=== PATIENT | male | born 1975 | race Caucasian/White ===

== ENCOUNTER 2021-07-10 15:53 | Inpatient (IN) | payer OTHER ==
[2021-07-10] MEDS ORDERED: Sodium Chloride 0.9% 2.5 ML Syringe FLUSH PRN (16:06)
[2021-07-10] MEDS ORDERED: Sodium Chloride 0.9% 10 ML Syringe FLUSH PRN (16:06)
--- NOTE | 2021-07-10 16:09 | EDM.PDOC ---
ED HPI GENERAL MEDICAL PROBLEM - General Chief Complaint: Respiratory Problem Stated Complaint: SOB, DIZZY, PASSING OUT Time Seen by Provider: 07/10/21 16:00 - History of Present Illness INITIAL COMMENTS - FREE TEXT/NARRATIVE: History of present illness: [] The patient reports he is short of breath. He has been coughing since 02 July. He had a Covid test positive this week. He continues to be coughing but now is more short of breath. He fatigues easily. He coughs so hard that he passes out. He does not smoke. He does not have any significant risk for serious Covid disease. He is 46 years of age and he has only intermittent bronchospasm in the past and no permanent lung disease. Review of systems: As per history of present illness and below otherwise all systems reviewed and negative. Past medical history: As per history of present illness and as reviewed below otherwise noncontributory. Surgical history: As per history of present illness and as reviewed below otherwise noncontributory. Social history: No reported history of drug or alcohol abuse. Family history: As per history of present illness and as reviewed below otherwise noncontributory. Physical exam: Constitutional - well developed, well-nourished and in no acute distress HEENT - normocephalic, no evidence of trauma - external nose and mouth normal - no mass in neck and no JVD - mucosae moist EYES - full EOM, PERRL, no icterus - no evidence of inflammation, injection, or drainage Respiratory - no respiratory distress, equal bilateral expansion, lungs markedly diminished throughout. Cardiovascular - Regular Rhythm with S1 and S2 appreciated and no murmur, gallop or rub. GI - abdomen soft without distension or organomegaly - normal bowel sounds - no guard or rebound Musculoskeletal no gross deformity of long bones or joints - no tenderness, swelling or edema Neurologic - Alert and oriented times four - CN II-XII grossly intact - motor sensory and coordination symmetrically normal Psychiatric - appropriate mood and affect with normal thought content Hematologic - No petechiae or purpura - mucosa appropriate color and sclera not pale - normal nail bed color and refill Integument - no rash or evidence of trauma - normal turgor Diagnostics: [] Therapeutics: [] Impression: [] Plan: [] Definitive disposition and diagnosis as appropriate pending reevaluation and review of above. Headache Pain Score (Numeric/FACES): 7 - Related Data Allergies Allergy/AdvReac Type Severity Reaction Status Date / Time No Known Allergies Allergy Verified 07/10/21 16:39 Home Meds: Home Meds Codeine Phosphate/Guaifenesin [Guaifen-Codeine 100-10 mg/5 ml] 5 ml PO 07/10/21 [History] lisinopriL [Lisinopril] 20 mg PO 07/10/21 [History] predniSONE 10 mg PO .TAPER 07/10/21 [History] ED ROS GENERAL - Review of Systems Review Of Systems: Comprehensive ROS is negative, except as noted in HPI. ED EXAM, GENERAL - Physical Exam Exam: See Below Free Text/Narrative:: My physical exam is in the HPI #1 Interpretation EKG Interpretation Comments: EKG sinus tachycardia heart rate 112 WI 163 QRS 69 QRS has a late transition R wave ST and T are within normal limits no prior for comparison impression no acute injury Course - Vital Signs Last Recorded V/S: Last Vital Signs Temp 36.4 C 07/10/21 16:20 Pulse 105 H 07/10/21 17:45 Resp 16 07/10/21 17:45 BP 120/77 07/10/21 17:45 Pulse Ox 95 07/10/21 17:45 - Orders/Labs/Meds Orders: Active Orders 24 hr Category Date Time Status Communication Order [RC] STAT Care 07/10/21 16:05 Active Sodium Chloride 0.9% [Normal Saline] 1,000 ml Med 07/10/21 17:39 Active IV .Bolus Sodium Chloride 0.9% [Normal Saline] 1,000 ml Med 07/10/21 17:39 Active IV .Bolus Sodium Chloride 0.9% [Saline Flush] Med 07/10/21 16:06 Active 10 ml FLUSH ASDIRECTED PRN Sodium Chloride 0.9% [Saline Flush] Med 07/10/21 16:06 Active 2.5 ml FLUSH ASDIRECTED PRN Saline Lock Insert [OM.PC] Stat Oth 07/10/21 16:06 Ordered Medication Orders Sodium Chloride (Normal Saline) 1,000 mls @ 1,000 mls/hr IV .Bolus ONE Stop: 07/10/21 18:38 Last Admin: 07/10/21 17:42 Dose: 1,000 mls/hr Documented by: STRUALA Sodium Chloride (Normal Saline) 1,000 mls @ 1,000 mls/hr IV .Bolus ONE Stop: 07/10/21 18:38 Sodium Chloride (Sodium Chloride 0.9% 10 Ml Syringe) 10 ml FLUSH ASDIRECTED PRN PRN Reason: Keep Vein Open Last Admin: 07/10/21 16:57 Dose: 10 ml Documented by: KIA Sodium Chloride (Sodium Chloride 0.9% 2.5 Ml Syringe) 2.5 ml FLUSH ASDIRECTED PRN PRN Reason: Keep Vein Open Last Admin: 07/10/21 16:57 Dose: 2.5 ml Documented by: KIA Labs: Laboratory Tests 07/10/21 07/10/21 07/10/21 Range/Units 16:10 16:10 16:13 WBC 6.67 (4.0-11.0) K/uL RBC 6.05 H (4.50-5.90) M/uL Hgb 20.1 H (13.0-17.0) g/dL Hct 55.9 H (38.0-50.0) % MCV 92.4 (80.0-98.0) fL MCH 33.2 H (27.0-32.0) pg MCHC 36.0 (31.0-37.0) g/dL RDW Std Deviation 46.6 (28.0-62.0) fl RDW Coeff of Roldan 14 (11.0-15.0) % Plt Count 178 (150-400) K/uL MPV 10.90 (7.40-12.00) fL Neut % (Auto) 62.1 (48.0-80.0) % Lymph % (Auto) 27.6 (16.0-40.0) % [place] % (Auto) 10.2 (0.0-15.0) % Eos % (Auto) 0.0 (0.0-7.0) % Baso % (Auto) 0.1 (0.0-1.5) % Neut # (Auto) 4.1 (1.4-5.7) K/uL Lymph # (Auto) 1.8 (0.6-2.4) K/uL [place] # (Auto) 0.7 (0.0-0.8) K/uL Eos # (Auto) 0.0 (0.0-0.7) K/uL Baso # (Auto) 0.0 (0.0-0.1) K/uL Nucleated RBC % 0.0 /100WBC Nucleated RBCs # 0 K/uL Sodium 134 L (136-148) mmol/L Potassium 4.2 (3.5-5.1) mmol/L Chloride 98 (98-107) mmol/L Carbon Dioxide 24.0 (21.0-32.0) mmol/L BUN 24 H (7.0-18.0) mg/dL Creatinine 1.5 H (0.8-1.3) mg/dL Est Cr Clr Drug Dosing TNP Estimated GFR (MDRD) 50.4 ml/min Glucose 141 H (74-106) mg/dL Calcium 8.0 L (8.5-10.1) mg/dL Total Bilirubin 0.7 (0.2-1.0) mg/dL AST 45 H (15-37) IU/L ALT 51 (14-63) IU/L Alkaline Phosphatase 53 (46-116) U/L Troponin I < 0.050 (0.000-0.056) ng/mL Total Protein 7.7 (6.4-8.2) g/dL Albumin 3.2 L (3.4-5.0) g/dL Globulin 4.5 H (2.6-4.0) g/dL Albumin/Globulin Ratio 0.7 L (0.9-1.6) Influenza Type A RNA NEGATIVE (NEGATIVE) Influenza Type B RNA NEGATIVE (NEGATIVE) SARS-CoV-2 RNA (IVONE) POSITIVE H (NEGATIVE) Meds: Medications Generic Name Dose Route Start Last Admin Trade Name Freq PRN Reason Stop Dose Admin Sodium Chloride 1,000 mls @ 1,000 mls/hr 07/10/21 17:39 07/10/21 17:42 Normal Saline IV 07/10/21 18:38 1,000 mls/hr .Bolus ONE Administration Sodium Chloride 1,000 mls @ 1,000 mls/hr 07/10/21 17:39 Normal Saline IV 07/10/21 18:38 .Bolus ONE Sodium Chloride 10 ml 07/10/21 16:06 07/10/21 16:57 Sodium Chloride 0.9% 10 Ml Syringe FLUSH 10 ml ASDIRECTED PRN Administration Keep Vein Open Sodium Chloride 2.5 ml 07/10/21 16:06 07/10/21 16:57 Sodium Chloride 0.9% 2.5 Ml Syringe FLUSH 2.5 ml ASDIRECTED PRN Administration Keep Vein Open Discontinued Medications Generic Name Dose Route Start Last Admin Trade Name Angelica PRN Reason Stop Dose Admin Acetaminophen 1,000 mg 07/10/21 16:49 07/10/21 16:56 Acetaminophen 500 Mg Tab PO 07/10/21 16:50 1,000 mg ONETIME ONE Administration - Re-Assessments/Exams Free Text/Narrative Re-Assessment/Exam: 07/10/21 17:40 Medically it is over 55 and hemoglobin over 20. Patient says his hematocrit and hemoglobin have been high before and his doctor in [place] who prescribes his testosterone injections knows that. He took a testosterone injection last night. He says his hemoglobin surges before that and he is not drinking well because of not feeling well so he is dehydrated. Plan to give 2 L of fluids and recheck it. Free Text/Narrative Re-Assessment/Exam: 07/10/21 18:[address] Miguel A Maddox and he agreed to hydrate the patient and recheck the labs. Polycythemia can be treated by phlebotomy but this in this town is done as an outpatient in the clinic. Patient's hypoxia and Covid and polycythemia in combination are indications for admission because the hydration to help reduce the polycythemia would be significant enough that he might be a threat to his wellbeing in terms of his Covid status. Departure - Departure Time of Disposition: 18:18 Disposition: Refer to Observation Condition: Good Clinical Impression: Pneumonia due to COVID-19 virus, Hypoxia, Dyspnea, Polycythemia - Discharge Information Referrals: PCP,None [Primary Care Provider] - Forms: ED Department Discharge Sepsis Event Note (ED) - Focused Exam Vital Signs: Vital Signs Temp Pulse Resp BP Pulse Ox 07/10/21 17:45 105 H 16 120/77 95 07/10/21 16:57 111 H 17 132/86 95 07/10/21 16:20 36.4 C 101 H 16 140/87 95 07/10/21 16:00 116 H 20 134/82 89 L - My Orders Last 24 Hours: My Active Orders 07/10/21 16:05 Communication Order [RC] STAT 07/10/21 16:06 Sodium Chloride 0.9% [Saline Flush] 10 ml FLUSH ASDIRECTED PRN Sodium Chloride 0.9% [Saline Flush] 2.5 ml FLUSH ASDIRECTED PRN Saline Lock Insert [OM.PC] Stat 07/10/21 17:39 Sodium Chloride 0.9% [Normal Saline] 1,000 ml IV .Bolus Sodium Chloride 0.9% [Normal Saline] 1,000 ml IV .Bolus - Assessment/Plan Last 24 Hours: My Active Orders 07/10/21 16:05 Communication Order [RC] STAT 07/10/21 16:06 Sodium Chloride 0.9% [Saline Flush] 10 ml FLUSH ASDIRECTED PRN Sodium Chloride 0.9% [Saline Flush] 2.5 ml FLUSH ASDIRECTED PRN Saline Lock Insert [OM.PC] Stat 07/10/21 17:39 Sodium Chloride 0.9% [Normal Saline] 1,000 ml IV .Bolus Sodium Chloride 0.9% [Normal Saline] 1,000 ml IV .Bolus
[2021-07-10] MEDS ORDERED: Acetaminophen 500 MG Tab PO ONE (16:49)
[2021-07-10 16:54] LABS: BLOOD UREA NITROGEN,BUN 24 mg/dL (7.0-18.0); CHLORIDE,CL 98 mmol/L (98-107); GLUCOSE RANDOM 141 mg/dL (74-106); POTASSIUM,K 4.2 mmol/L (3.5-5.1); SODIUM,NA 134 mmol/L (136-148)
--- NOTE | 2021-07-10 17:23 | CR ---
INDICATION: dyspnea/covid positive TECHNIQUE: Chest 1 view. COMPARISON: None. FINDINGS: Cardiovascular and mediastinum: Heart size and vasculature are normal in caliber and appearance. Mediastinum is within normal limits. Lungs and pleural space: Lungs are clear. No sign of infiltrate or mass. No sign of pleural effusion. No pneumothorax. Bones and soft tissues: No significant findings. IMPRESSION: Unremarkable chest. Dictated by: Jovanny Gonzalez MD @ 07/10/2021 17:21:56 (Electronically Signed)
[2021-07-10 17:27] LABS: CORONAVIRUS COVID-19 NAA POSITIVE (NEGATIVE); INFLUENZA A NAA NEGATIVE (NEGATIVE); INFLUENZA B NAA NEGATIVE (NEGATIVE)
[2021-07-10] MEDS ORDERED: Sodium Chloride 0.9% 1,000 ML IV ONE ×2 (17:39)
--- NOTE | 2021-07-10 17:51 | CT ---
INDICATION: Hypoxia, cough, COVID positive TECHNIQUE: CT chest pulmonary PE protocol acquired with 100 cc Isovue 370 IV contrast. COMPARISON: None FINDINGS: Cardiovascular structures: Normal vascular enhancement of the pulmonary arteries, no sign of pulmonary embolism. Heart size is normal. No sign of aneurysm in the thoracic aorta. Mediastinum and nelly: No mass or adenopathy. Lungs: Patchy ground-glass opacities scattered throughout the lungs. Bilateral dependent atelectasis. Pleura and pericardium: No effusions. Chest wall and axilla: No mass or adenopathy. Upper abdomen: Unremarkable. Bones: No significant findings. IMPRESSION: No pulmonary embolism. Bilateral ground-glass opacities consistent with COVID-19 infection. Please note that all CT scans at this facility use dose modulation, iterative reconstruction, and/or weight-based dosing when appropriate to reduce radiation dose to as low as reasonably achievable. Dictated by Ashley Garza MD @ 07/10/2021 5:48:31 PM (Electronically Signed)
[2021-07-10] MEDS ORDERED: Iopamidol 755 MG/ML 500 ML Multipack Bottle IVPUSH ONE (18:31)
[2021-07-10] MEDS ORDERED: REMDESIVIR 200 MG in Sodium Chloride 0.9% 250 ML IV ONE (21:48)
[2021-07-10] MEDS ORDERED: Albuterol 8 GM Inhaler INH PRN (21:50)
[2021-07-10] MEDS ORDERED: Melatonin 3 MG Tab PO PRN (21:56)
--- NOTE | 2021-07-10 21:57 | PCM.HP.2 ---
H&P History of Present Illness - General Date of Service: 07/10/21 Admit Problem/Dx: Admission Diagnosis/Problem Admission Diagnosis/Problem Polycythemia - History of Present Illness Initial Comments - Free Text/Narative: 46 yo male admitted for one week of cold symptoms. Patient reports severe cough which causes him to be fatigued and short of breath. PAtient reports passing out twice. He denies any fever. CT chest reported no PE, bilateral infiltrates. He was satting 88% on room air, requring 2 L to keep sats above 90%. Patient reports a history of elevated Hgb due to his testosterone supplementation. He reports that the past week he has not been drinking enough fluids to keep his Hgb level down. Headache Pain Score (Numeric/FACES): 7 - Related Data Allergies/Adverse Reactions: Allergies Allergy/AdvReac Type Severity Reaction Status Date / Time No Known Allergies Allergy Verified 07/10/21 16:39 Home Medications: Home Meds Albuterol Sulfate [Albuterol Sulfate HFA] 8.5 gm INH Q8HR PRN 07/10/21 [History] Codeine Phosphate/Guaifenesin [Guaifen-Codeine 100-10 mg/5 ml] 10 ml PO Q4H PRN 07/10/21 [History] Testosterone Cypionate [Testone Cik] 0.5 ml IM Q96H 07/10/21 [History] lisinopriL [Lisinopril] 20 mg PO BID 07/10/21 [History] predniSONE 10 mg PO .TAPER 07/10/21 [History] Past Medical History - Past Health History Medical/Surgical History: Denies Medical/Surgical History Social & Family History - Family History Family Medical History: No Pertinent Family History - Tobacco Use Tobacco Use Status *Q: Never Tobacco User Second Hand Smoke Exposure: No - Caffeine Use Caffeine Use: Reports: Coffee, Tea, Other Other Caffeine Use: espresso - Alcohol Use Days Per Week of Alcohol Use: 3 Number of Drinks Per Day: 3 Total Drinks Per Week: 9 Date of Last Drink: 07/01/21 Time of Last Drink: 20:00 - Recreational Drug Use Recreational Drug Use: No H&P Review of Systems - Review of Systems: Review Of Systems: Comprehensive ROS is negative, except as noted in HPI. Exam - Exam Exam: See Below - Vital Signs Vital Signs: Last Vital Signs Temp 35.9 C L 07/10/21 20:00 Pulse 92 07/10/21 20:00 Resp 20 07/10/21 20:00 BP 121/80 07/10/21 20:00 Pulse Ox 92 L 07/10/21 20:00 Weight: 99.11 kg - Exam General: Alert, Oriented HEENT: Mucosa Moist & [place] Neck: Supple Lungs: Clear to Auscultation Cardiovascular: Regular Rate, Regular Rhythm GI/Abdominal Exam: Normal Bowel Sounds, Soft, Non-Tender Extremities: Non-Tender, No Pedal Edema Skin: Warm, Dry, Intact - Patient Data Lab Results Last 24 hrs: Laboratory Results - last 24 hr 07/10/21 07/10/21 07/10/21 Range/Units 16:10 16:10 16:13 WBC 6.67 (4.0-11.0) K/uL RBC 6.05 H (4.50-5.90) M/uL Hgb 20.1 H (13.0-17.0) g/dL Hct 55.9 H (38.0-50.0) % MCV 92.4 (80.0-98.0) fL MCH 33.2 H (27.0-32.0) pg MCHC 36.0 (31.0-37.0) g/dL RDW Std Deviation 46.6 (28.0-62.0) fl RDW Coeff of Roldan 14 (11.0-15.0) % Plt Count 178 (150-400) K/uL MPV 10.90 (7.40-12.00) fL Neut % (Auto) 62.1 (48.0-80.0) % Lymph % (Auto) 27.6 (16.0-40.0) % [place] % (Auto) 10.2 (0.0-15.0) % Eos % (Auto) 0.0 (0.0-7.0) % Baso % (Auto) 0.1 (0.0-1.5) % Neut # (Auto) 4.1 (1.4-5.7) K/uL Lymph # (Auto) 1.8 (0.6-2.4) K/uL [place] # (Auto) 0.7 (0.0-0.8) K/uL Eos # (Auto) 0.0 (0.0-0.7) K/uL Baso # (Auto) 0.0 (0.0-0.1) K/uL Nucleated RBC % 0.0 /100WBC Nucleated RBCs # 0 K/uL Sodium 134 L (136-148) mmol/L Potassium 4.2 (3.5-5.1) mmol/L Chloride 98 (98-107) mmol/L Carbon Dioxide 24.0 (21.0-32.0) mmol/L BUN 24 H (7.0-18.0) mg/dL Creatinine 1.5 H (0.8-1.3) mg/dL Est Cr Clr Drug Dosing TNP Estimated GFR (MDRD) 50.4 ml/min Glucose 141 H (74-106) mg/dL Calcium 8.0 L (8.5-10.1) mg/dL Total Bilirubin 0.7 (0.2-1.0) mg/dL AST 45 H (15-37) IU/L ALT 51 (14-63) IU/L Alkaline Phosphatase 53 (46-116) U/L Troponin I < 0.050 (0.000-0.056) ng/mL Total Protein 7.7 (6.4-8.2) g/dL Albumin 3.2 L (3.4-5.0) g/dL Globulin 4.5 H (2.6-4.0) g/dL Albumin/Globulin Ratio 0.7 L (0.9-1.6) Influenza Type A RNA NEGATIVE (NEGATIVE) Influenza Type B RNA NEGATIVE (NEGATIVE) SARS-CoV-2 RNA (IVONE) POSITIVE H (NEGATIVE) 07/10/21 Range/Units 21:19 WBC 5.37 (4.0-11.0) K/uL RBC 5.53 (4.50-5.90) M/uL Hgb 18.2 H (13.0-17.0) g/dL Hct 51.8 H (38.0-50.0) % MCV 93.7 (80.0-98.0) fL MCH 32.9 H (27.0-32.0) pg MCHC 35.1 (31.0-37.0) g/dL RDW Std Deviation 47.5 (28.0-62.0) fl RDW Coeff of Roldan 14 (11.0-15.0) % Plt Count 135 L (150-400) K/uL MPV 10.60 (7.40-12.00) fL Neut % (Auto) (48.0-80.0) % Lymph % (Auto) (16.0-40.0) % [place] % (Auto) (0.0-15.0) % Eos % (Auto) (0.0-7.0) % Baso % (Auto) (0.0-1.5) % Neut # (Auto) (1.4-5.7) K/uL Lymph # (Auto) (0.6-2.4) K/uL [place] # (Auto) (0.0-0.8) K/uL Eos # (Auto) (0.0-0.7) K/uL Baso # (Auto) (0.0-0.1) K/uL Nucleated RBC % 0.0 /100WBC Nucleated RBCs # 0 K/uL Sodium (136-148) mmol/L Potassium (3.5-5.1) mmol/L Chloride (98-107) mmol/L Carbon Dioxide (21.0-32.0) mmol/L BUN (7.0-18.0) mg/dL Creatinine (0.8-1.3) mg/dL Est Cr Clr Drug Dosing Estimated GFR (MDRD) ml/min Glucose (74-106) mg/dL Calcium (8.5-10.1) mg/dL Total Bilirubin (0.2-1.0) mg/dL AST (15-37) IU/L ALT (14-63) IU/L Alkaline Phosphatase (46-116) U/L Troponin I (0.000-0.056) ng/mL Total Protein (6.4-8.2) g/dL Albumin (3.4-5.0) g/dL Globulin (2.6-4.0) g/dL Albumin/Globulin Ratio (0.9-1.6) Influenza Type A RNA (NEGATIVE) Influenza Type B RNA (NEGATIVE) SARS-CoV-2 RNA (IVONE) (NEGATIVE) Result Diagrams: 07/10/21 21:19 07/10/21 16:10 Sepsis Event Note - Evaluation Sepsis Screening Result: Possible Sepsis Risk - Focused Exam Vital Signs: Vital Signs Temp Pulse Resp BP Pulse Ox 07/10/21 20:00 35.9 C L 92 20 121/80 92 L 07/10/21 19:42 91 16 118/79 97 07/10/21 18:45 92 16 112/76 96 07/10/21 17:45 105 H 16 120/77 95 07/10/21 16:57 111 H 17 132/86 95 07/10/21 16:20 36.4 C 101 H 16 140/87 95 07/10/21 16:00 116 H 20 134/82 89 L - Problem List (1) Erythrocytosis SNOMED Code(s): 456189177, 881940422 ICD Code: D75.1 - SECONDARY POLYCYTHEMIA Status: Acute Current Visit: Yes (2) Hypoxia SNOMED Code(s): 223881648 ICD Code: R09.02 - HYPOXEMIA Status: Acute Current Visit: Yes (3) Pneumonia due to COVID-19 virus SNOMED Code(s): 775558236575652443 ICD Code: U07.1 - COVID-19; J12.82 - PNEUMONIA DUE TO CORONAVIRUS DISEASE 2019 Status: Acute Current Visit: Yes Problem List Initiated/Reviewed/Updated: Yes Orders Last 24hrs: Active Orders 24 hr Category Date Time Status Admission Status [Patient Status] [ADT] Stat ADT 07/10/21 18:20 Active Cardiac Monitoring [RC] . DIRECTED Care 07/10/21 21:51 Ordered Communication Order [RC] STAT Care 07/10/21 16:05 Active COMPREHENSIVE METABOLIC PN,CMP [CHEM] AM Lab 07/11/21 05:11 Ordered COMPREHENSIVE METABOLIC PN,CMP [CHEM] AM Lab 07/12/21 05:11 Ordered COMPREHENSIVE METABOLIC PN,CMP [CHEM] AM Lab 07/13/21 05:11 Ordered Albuterol Sulfate Med 07/10/21 21:50 Ordered 8.5 gm INH Q4HR PRN Enoxaparin [Lovenox] Med 07/10/21 22:00 Ordered 40 mg SUBCUT Q24H Remdesivir 100 mg Med 07/11/21 22:00 Ordered Sodium Chloride 0.9% [Normal Saline AdvBag] 100 ml IV Q24H Remdesivir 200 mg Med 07/10/21 21:48 Ordered Sodium Chloride 0.9% [Normal Saline] 250 ml IV ONETIME Sodium Chloride 0.9% [Saline Flush] Med 07/10/21 16:06 Active 10 ml FLUSH ASDIRECTED PRN Sodium Chloride 0.9% [Saline Flush] Med 07/10/21 16:06 Active 2.5 ml FLUSH ASDIRECTED PRN dexAMETHasone Med 07/10/21 22:00 Ordered 6 mg PO Q24H lisinopriL Med 07/11/21 09:00 Ordered 20 mg PO BID Saline Lock Insert [OM.PC] Stat Oth 07/10/21 16:06 Ordered Medication Orders Dexamethasone (Dexamethasone 4 Mg Tab) 6 mg PO Q24H KELVIN Enoxaparin Sodium (Enoxaparin 40 Mg/0.4 Ml Syringe) 40 mg SUBCUT Q24H KELVIN Remdesivir 100 mg/ Sodium (Chloride) 100 mls @ 100 mls/hr IV Q24H KELVIN Stop: 07/14/21 22:59 Remdesivir 200 mg/ Sodium (Chloride) 250 mls @ 250 mls/hr IV ONETIME ONE Stop: 07/10/21 21:49 Non-Formulary Medication (Lisinopril) 20 mg PO BID KELVIN Non-Formulary Medication (Albuterol Sulfate) 8.5 gm INH Q4HR PRN PRN Reason: Cough Sodium Chloride (Sodium Chloride 0.9% 10 Ml Syringe) 10 ml FLUSH ASDIRECTED PRN PRN Reason: Keep Vein Open Last Admin: 07/10/21 16:57 Dose: 10 ml Documented by: KIA Sodium Chloride (Sodium Chloride 0.9% 2.5 Ml Syringe) 2.5 ml FLUSH ASDIRECTED P RN PRN Reason: Keep Vein Open Last Admin: 07/10/21 16:57 Dose: 2.5 ml Documented by: KIA Assessment/Plan Comment:: 46 yo male admitted for covid pneumoni with hypxia Hypoxia: on 2 L NC COVID pneumonia: remdesivir and dexamethasone Erythrocytosis: likley related to testosterone use
[2021-07-10] MEDS: Enoxaparin 40 MG/0.4 ML Syringe SUBCUT SCH (23:08)
[2021-07-10] MEDS: Dexamethasone 4 MG Tab PO SCH (23:09)
[2021-07-10] MEDS: Codeine/guaiFENesin 10-100 MG/5 ML Syrup 5 ML Cup PO PRN (23:10)
[2021-07-11] MEDS: Benzonatate 100 MG Cap PO PRN ×3 (00:54→20:57)
[2021-07-11] MEDS: Codeine/guaiFENesin 10-100 MG/5 ML Syrup 5 ML Cup PO PRN ×3 (06:08→22:17)
[2021-07-11 07:02] LABS: BLOOD UREA NITROGEN,BUN 19 mg/dL (7.0-18.0); CARBON DIOXIDE,CO2 24.8 mmol/L (21.0-32.0); CHLORIDE,CL 99 mmol/L (98-107); GLUCOSE RANDOM 127 mg/dL (74-106); POTASSIUM,K 4.9 mmol/L (3.5-5.1); SODIUM,NA 132 mmol/L (136-148)
[2021-07-11] MEDS: Lisinopril 10 MG Tab PO SCH ×2 (09:31→20:57)
--- NOTE | 2021-07-11 16:51 | PCM.PN ---
- General Info Date of Service: 07/11/21 - Review of Systems Systems Review Comment:: patient reports shortness of breath with exertion due to cough, is worried about going home to soon. - Patient Data Vitals - Most Recent: Last Vital Signs Temp 37.3 C 07/11/21 14:00 Pulse 98 07/11/21 14:00 Resp 18 07/11/21 14:00 BP 121/81 07/11/21 14:00 Pulse Ox 94 L 07/11/21 14:00 Weight - Most Recent: 99.11 kg I&O - Last 24 Hours: Intake & Output 07/11/21 07/11/21 07/11/21 06:59 14:59 22:59 Intake Total 900 Output Total 900 Balance 0 Lab Results Last 24 Hours: Laboratory Results - last 24 hr 07/10/21 07/10/21 07/10/21 Range/Units 16:10 16:13 21:19 WBC 5.37 (4.0-11.0) K/uL RBC 5.53 (4.50-5.90) M/uL Hgb 18.2 H (13.0-17.0) g/dL Hct 51.8 H (38.0-50.0) % MCV 93.7 (80.0-98.0) fL MCH 32.9 H (27.0-32.0) pg MCHC 35.1 (31.0-37.0) g/dL RDW Std Deviation 47.5 (28.0-62.0) fl RDW Coeff of Roldan 14 (11.0-15.0) % Plt Count 135 L (150-400) K/uL MPV 10.60 (7.40-12.00) fL Neut % (Auto) (48.0-80.0) % Lymph % (Auto) (16.0-40.0) % Stafford % (Auto) (0.0-15.0) % Eos % (Auto) (0.0-7.0) % Baso % (Auto) (0.0-1.5) % Neut # (Auto) (1.4-5.7) K/uL Lymph # (Auto) (0.6-2.4) K/uL Stafford # (Auto) (0.0-0.8) K/uL Eos # (Auto) (0.0-0.7) K/uL Baso # (Auto) (0.0-0.1) K/uL Nucleated RBC % 0.0 /100WBC Nucleated RBCs # 0 K/uL Sodium 134 L (136-148) mmol/L Potassium 4.2 (3.5-5.1) mmol/L Chloride 98 (98-107) mmol/L Carbon Dioxide 24.0 (21.0-32.0) mmol/L BUN 24 H (7.0-18.0) mg/dL Creatinine 1.5 H (0.8-1.3) mg/dL Est Cr Clr Drug Dosing TNP Estimated GFR (MDRD) 50.4 ml/min Glucose 141 H (74-106) mg/dL Calcium 8.0 L (8.5-10.1) mg/dL Total Bilirubin 0.7 (0.2-1.0) mg/dL AST 45 H (15-37) IU/L ALT 51 (14-63) IU/L Alkaline Phosphatase 53 (46-116) U/L Troponin I < 0.050 (0.000-0.056) ng/mL Total Protein 7.7 (6.4-8.2) g/dL Albumin 3.2 L (3.4-5.0) g/dL Globulin 4.5 H (2.6-4.0) g/dL Albumin/Globulin Ratio 0.7 L (0.9-1.6) Influenza Type A RNA NEGATIVE (NEGATIVE) Influenza Type B RNA NEGATIVE (NEGATIVE) SARS-CoV-2 RNA (IVONE) POSITIVE H (NEGATIVE) 07/11/21 07/11/21 Range/Units 05:40 05:40 WBC 4.80 (4.0-11.0) K/uL RBC 5.44 (4.50-5.90) M/uL Hgb 17.2 H (13.0-17.0) g/dL Hct 50.4 H (38.0-50.0) % MCV 92.6 (80.0-98.0) fL MCH 31.6 (27.0-32.0) pg MCHC 34.1 (31.0-37.0) g/dL RDW Std Deviation 44.2 (28.0-62.0) fl RDW Coeff of Roldan 13 (11.0-15.0) % Plt Count 148 L (150-400) K/uL MPV 11.70 (7.40-12.00) fL Neut % (Auto) 70.2 (48.0-80.0) % Lymph % (Auto) 18.1 (16.0-40.0) % Stafford % (Auto) 11.5 (0.0-15.0) % Eos % (Auto) 0.0 (0.0-7.0) % Baso % (Auto) 0.2 (0.0-1.5) % Neut # (Auto) 3.4 (1.4-5.7) K/uL Lymph # (Auto) 0.9 (0.6-2.4) K/uL Stafford # (Auto) 0.6 (0.0-0.8) K/uL Eos # (Auto) 0.0 (0.0-0.7) K/uL Baso # (Auto) 0.0 (0.0-0.1) K/uL Nucleated RBC % /100WBC Nucleated RBCs # K/uL Sodium 132 L (136-148) mmol/L Potassium 4.9 (3.5-5.1) mmol/L Chloride 99 (98-107) mmol/L Carbon Dioxide 24.8 (21.0-32.0) mmol/L BUN 19 H (7.0-18.0) mg/dL Creatinine 1.1 (0.8-1.3) mg/dL Est Cr Clr Drug Dosing 89.37 Estimated GFR (MDRD) > 60.0 ml/min Glucose 127 H (74-106) mg/dL Calcium 7.5 L (8.5-10.1) mg/dL Total Bilirubin 0.5 (0.2-1.0) mg/dL AST 43 H (15-37) IU/L ALT 41 (14-63) IU/L Alkaline Phosphatase 43 L (46-116) U/L Troponin I (0.000-0.056) ng/mL Total Protein 6.5 (6.4-8.2) g/dL Albumin 2.7 L (3.4-5.0) g/dL Globulin 3.8 (2.6-4.0) g/dL Albumin/Globulin Ratio 0.7 L (0.9-1.6) Influenza Type A RNA (NEGATIVE) Influenza Type B RNA (NEGATIVE) SARS-CoV-2 RNA (IVONE) (NEGATIVE) Med Orders - Current: Current Medications Albuterol (Albuterol 8 Gm Inhaler) 0 gm INH Q4HR PRN PRN Reason: Cough Benzonatate (Benzonatate 100 Mg Cap) 100 mg PO Q6H PRN PRN Reason: Cough Last Admin: 07/11/21 12:00 Dose: 100 mg Documented by: Dexamethasone (Dexamethasone 4 Mg Tab) 6 mg PO Q24H [facility] Last Admin: 07/10/21 23:09 Dose: 6 mg Documented by: Enoxaparin Sodium (Enoxaparin 40 Mg/0.4 Ml Syringe) 40 mg SUBCUT Q24H [facility] Last Admin: 07/10/21 23:08 Dose: 40 mg Documented by: Guaifenesin/Codeine Phosphate (Codeine/Guaifenesin 10-100 Mg/5 Ml Syrup 5 Ml Cup) 5 ml PO Q6H PRN PRN Reason: Cough Last Admin: 07/11/21 12:00 Dose: 5 ml Documented by: Remdesivir 100 mg/ Sodium (Chloride) 100 mls @ 100 mls/hr IV Q24H [facility] Stop: 07/14/21 22:59 Lisinopril (Lisinopril 10 Mg Tab) 20 mg PO BID [facility] Last Admin: 07/11/21 09:31 Dose: 20 mg Documented by: Melatonin (Melatonin 3 Mg Tab) 6 mg PO BEDTIME PRN PRN Reason: Insomnia Last Admin: 07/11/21 01:00 Dose: 6 mg Documented by: Sodium Chloride (Sodium Chloride 0.9% 10 Ml Syringe) 10 ml FLUSH ASDIRECTED PRN PRN Reason: Keep Vein Open Last Admin: 07/10/21 16:57 Dose: 10 ml Documented by: Sodium Chloride (Sodium Chloride 0.9% 2.5 Ml Syringe) 2.5 ml FLUSH ASDIRECTED PRN PRN Reason: Keep Vein Open Last Admin: 07/10/21 16:57 Dose: 2.5 ml Documented by: Discontinued Medications Acetaminophen (Acetaminophen 500 Mg Tab) 1,000 mg PO ONETIME ONE Stop: 07/10/21 16:50 Last Admin: 07/10/21 16:56 Dose: 1,000 mg Documented by: Sodium Chloride (Normal Saline) 1,000 mls @ 1,000 mls/hr IV .Bolus ONE Stop: 07/10/21 18:38 Last Admin: 07/10/21 17:42 Dose: 1,000 mls/hr Documented by: Sodium Chloride (Normal Saline) 1,000 mls @ 1,000 mls/hr IV .Bolus ONE Stop: 07/10/21 18:38 Last Admin: 07/10/21 19:02 Dose: 1,000 mls/hr Documented by: Remdesivir 200 mg/ Sodium (Chloride) 250 mls @ 250 mls/hr IV ONETIME ONE Stop: 07/10/21 21:49 Last Admin: 07/10/21 23:06 Dose: 250 mls/hr Documented by: Iopamidol (Iopamidol 755 Mg/Ml 500 Ml Multipack Bottle) 100 ml IVPUSH ONETIME ONE Stop: 07/10/21 18:32 Last Admin: 07/10/21 18:33 Dose: 100 ml Documented by: - Exam General: Alert, Oriented Neck: Supple Lungs: Normal Respiratory Effort, Rhonchi Cardiovascular: Regular Rate, Regular Rhythm GI/Abdominal Exam: Soft, Non-Tender, No Distention Back Exam: Other Extremities: No Pedal Edema Skin: Warm Neurological: No New Focal Deficit - Patient Data Lab Results Last 24 hrs: Laboratory Results - last 24 hr 07/10/21 07/10/21 07/10/21 Range/Units 16:10 16:13 21:19 WBC 5.37 (4.0-11.0) K/uL RBC 5.53 (4.50-5.90) M/uL Hgb 18.2 H (13.0-17.0) g/dL Hct 51.8 H (38.0-50.0) % MCV 93.7 (80.0-98.0) fL MCH 32.9 H (27.0-32.0) pg MCHC 35.1 (31.0-37.0) g/dL RDW Std Deviation 47.5 (28.0-62.0) fl RDW Coeff of Roldan 14 (11.0-15.0) % Plt Count 135 L (150-400) K/uL MPV 10.60 (7.40-12.00) fL Neut % (Auto) (48.0-80.0) % Lymph % (Auto) (16.0-40.0) % Stafford % (Auto) (0.0-15.0) % Eos % (Auto) (0.0-7.0) % Baso % (Auto) (0.0-1.5) % Neut # (Auto) (1.4-5.7) K/uL Lymph # (Auto) (0.6-2.4) K/uL Stafford # (Auto) (0.0-0.8) K/uL Eos # (Auto) (0.0-0.7) K/uL Baso # (Auto) (0.0-0.1) K/uL Nucleated RBC % 0.0 /100WBC Nucleated RBCs # 0 K/uL Sodium 134 L (136-148) mmol/L Potassium 4.2 (3.5-5.1) mmol/L Chloride 98 (98-107) mmol/L Carbon Dioxide 24.0 (21.0-32.0) mmol/L BUN 24 H (7.0-18.0) mg/dL Creatinine 1.5 H (0.8-1.3) mg/dL Est Cr Clr Drug Dosing TNP Estimated GFR (MDRD) 50.4 ml/min Glucose 141 H (74-106) mg/dL Calcium 8.0 L (8.5-10.1) mg/dL Total Bilirubin 0.7 (0.2-1.0) mg/dL AST 45 H (15-37) IU/L ALT 51 (14-63) IU/L Alkaline Phosphatase 53 (46-116) U/L Troponin I < 0.050 (0.000-0.056) ng/mL Total Protein 7.7 (6.4-8.2) g/dL Albumin 3.2 L (3.4-5.0) g/dL Globulin 4.5 H (2.6-4.0) g/dL Albumin/Globulin Ratio 0.7 L (0.9-1.6) Influenza Type A RNA NEGATIVE (NEGATIVE) Influenza Type B RNA NEGATIVE (NEGATIVE) SARS-CoV-2 RNA (IVONE) POSITIVE H (NEGATIVE) 07/11/21 07/11/21 Range/Units 05:40 05:40 WBC 4.80 (4.0-11.0) K/uL RBC 5.44 (4.50-5.90) M/uL Hgb 17.2 H (13.0-17.0) g/dL Hct 50.4 H (38.0-50.0) % MCV 92.6 (80.0-98.0) fL MCH 31.6 (27.0-32.0) pg MCHC 34.1 (31.0-37.0) g/dL RDW Std Deviation 44.2 (28.0-62.0) fl RDW Coeff of Roldan 13 (11.0-15.0) % Plt Count 148 L (150-400) K/uL MPV 11.70 (7.40-12.00) fL Neut % (Auto) 70.2 (48.0-80.0) % Lymph % (Auto) 18.1 (16.0-40.0) % Stafford % (Auto) 11.5 (0.0-15.0) % Eos % (Auto) 0.0 (0.0-7.0) % Baso % (Auto) 0.2 (0.0-1.5) % Neut # (Auto) 3.4 (1.4-5.7) K/uL Lymph # (Auto) 0.9 (0.6-2.4) K/uL Stafford # (Auto) 0.6 (0.0-0.8) K/uL Eos # (Auto) 0.0 (0.0-0.7) K/uL Baso # (Auto) 0.0 (0.0-0.1) K/uL Nucleated RBC % /100WBC Nucleated RBCs # K/uL Sodium 132 L (136-148) mmol/L Potassium 4.9 (3.5-5.1) mmol/L Chloride 99 (98-107) mmol/L Carbon Dioxide 24.8 (21.0-32.0) mmol/L BUN 19 H (7.0-18.0) mg/dL Creatinine 1.1 (0.8-1.3) mg/dL Est Cr Clr Drug Dosing 89.37 Estimated GFR (MDRD) > 60.0 ml/min Glucose 127 H (74-106) mg/dL Calcium 7.5 L (8.5-10.1) mg/dL Total Bilirubin 0.5 (0.2-1.0) mg/dL AST 43 H (15-37) IU/L ALT 41 (14-63) IU/L Alkaline Phosphatase 43 L (46-116) U/L Troponin I (0.000-0.056) ng/mL Total Protein 6.5 (6.4-8.2) g/dL Albumin 2.7 L (3.4-5.0) g/dL Globulin 3.8 (2.6-4.0) g/dL Albumin/Globulin Ratio 0.7 L (0.9-1.6) Influenza Type A RNA (NEGATIVE) Influenza Type B RNA (NEGATIVE) SARS-CoV-2 RNA (IVONE) (NEGATIVE) Result Diagrams: 07/11/21 05:40 07/11/21 05:40 Sepsis Event Note - Evaluation Sepsis Screening Result: No Definite Risk - Focused Exam Vital Signs: Vital Signs Temp Pulse Resp BP BP Pulse Ox 07/11/21 14:00 37.3 C 98 18 121/81 94 L 07/11/21 10:00 36.4 C 85 16 126/83 93 L 07/11/21 09:31 118/82 07/11/21 06:09 93 20 92 L - Problem List & Annotations (1) Erythrocytosis SNOMED Code(s): 845792640, 713116448 Code(s): D75.1 - SECONDARY POLYCYTHEMIA Status: Acute Current Visit: Yes (2) Hypoxia SNOMED Code(s): 248643640 Code(s): R09.02 - HYPOXEMIA Status: Acute Current Visit: Yes (3) Pneumonia due to COVID-19 virus SNOMED Code(s): 379136687683681135 Code(s): U07.1 - COVID-19; J12.82 - PNEUMONIA DUE TO CORONAVIRUS DISEASE 2019 Status: Acute Current Visit: Yes - Problem List Review Problem List Initiated/Reviewed/Updated: Yes - My Orders Last 24 Hours: My Active Orders 07/10/21 21:50 Albuterol [Ventolin HFA] 0 gm INH Q4HR PRN 07/10/21 21:51 Cardiac Monitoring [RC] Q8H 07/10/21 21:52 Oxygen Therapy [RC] PRN Up ad Christina [RC] ASDIRECTED VTE/DVT Education [RC] PER UNIT ROUTINE Vital Signs [RC] Q4H Sequential Compression Device [OM.PC] Per Unit Routine Resuscitation Status Routine 07/10/21 21:53 Antiembolic Devices [RC] PER UNIT ROUTINE 07/10/21 21:56 Benzonatate [Tessalon Perles] 100 mg PO Q6H PRN Codeine/guaiFENesin [Robitussin AC] 5 ml PO Q6H PRN Melatonin 6 mg PO BEDTIME PRN 07/10/21 22:00 Enoxaparin [Lovenox] 40 mg SUBCUT Q24H dexAMETHasone 6 mg PO Q24H 07/11/21 09:00 lisinopriL [Prinivil] 20 mg PO BID 07/11/21 16:48 Admission Status [Patient Status] [ADT] Routine Cardiac Monitoring [RC] . DIRECTED 07/11/21 22:00 Remdesivir 100 mg Sodium Chloride 0.9% [Normal Saline AdvBag] 100 ml IV Q24H 07/12/21 05:11 CBC WITH AUTO DIFF [HEME] AM COMPREHENSIVE METABOLIC PN,CMP [CHEM] AM 07/13/21 05:11 CBC WITH AUTO DIFF [HEME] AM COMPREHENSIVE METABOLIC PN,CMP [CHEM] AM - Plan Plan:: 46 yo male admitted for covid pneumonia with hypoxia Hypoxia: on 2 L NC COVID pneumonia: remdesivir and dexamethasone 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
[2021-07-11] MEDS: Acetaminophen 325 MG Tab PO PRN (22:17)
[2021-07-11] MEDS: Enoxaparin 40 MG/0.4 ML Syringe SUBCUT SCH (22:17)
[2021-07-11] MEDS: Dexamethasone 4 MG Tab PO SCH (22:18)
[2021-07-11] MEDS: REMDESIVIR 100 MG in Sodium Chloride 0.9% 100 ML IV SCH (22:23)
[2021-07-12 07:57] LABS: BLOOD UREA NITROGEN,BUN 23 mg/dL (7.0-18.0); CARBON DIOXIDE,CO2 24.8 mmol/L (21.0-32.0); CHLORIDE,CL 98 mmol/L (98-107); GLUCOSE RANDOM 140 mg/dL (74-106); POTASSIUM,K 4.6 mmol/L (3.5-5.1); SODIUM,NA 133 mmol/L (136-148)
[2021-07-12] MEDS: Lisinopril 10 MG Tab PO SCH ×2 (08:36→20:58)
[2021-07-12] MEDS: Codeine/guaiFENesin 10-100 MG/5 ML Syrup 5 ML Cup PO PRN (11:19)
[2021-07-12] MEDS: Acetaminophen 325 MG Tab PO PRN (11:49)
[2021-07-12] MEDS: guaiFENesin/Dextromethorphan 100-10 MG/5 ML Soln 10 ML Cup PO PRN ×2 (14:22→18:26)
[2021-07-12] MEDS: Dexamethasone 4 MG Tab PO SCH (21:01)
[2021-07-12] MEDS: Enoxaparin 40 MG/0.4 ML Syringe SUBCUT SCH (21:01)
[2021-07-12] MEDS: REMDESIVIR 100 MG in Sodium Chloride 0.9% 100 ML IV SCH (21:01)
[2021-07-13] MEDS: guaiFENesin/Dextromethorphan 100-10 MG/5 ML Soln 10 ML Cup PO PRN ×2 (00:33→10:00)
[2021-07-13] MEDS: Benzonatate 100 MG Cap PO PRN ×2 (02:13→12:04)
[2021-07-13 06:38] LABS: BLOOD UREA NITROGEN,BUN 26 mg/dL (7.0-18.0); CARBON DIOXIDE,CO2 25.3 mmol/L (21.0-32.0); CHLORIDE,CL 99 mmol/L (98-107); GLUCOSE RANDOM 128 mg/dL (74-106); POTASSIUM,K 4.6 mmol/L (3.5-5.1); SODIUM,NA 134 mmol/L (136-148)
--- NOTE | 2021-07-13 07:33 | PCM.PN ---
- General Info Date of Service: 07/13/21 Admission Dx/Problem (Free Text): Admission Diagnosis/Problem Admission Diagnosis/Problem Polycythemia Subjective Update: 46-year-old male admitted for Covid pneumonia. Patient tested positive for Covid 1 week ago. He presented to the ER complaining of coughing and increased shortness of breath and fatigue. As per patient, he had been coughing so hard at home that he passed out. Patient does not smoke. Patient has history of intermittent bronchospasm. Patient had a hemoglobin of 20.1 due to testosterone injections. BUN was 24 and creatinine was 1.5. Troponin negative. SARS-CoV-2 positive. - Patient Data Vitals - Most Recent: Last Vital Signs Temp 97.6 F 07/13/21 04:06 Pulse 91 07/13/21 04:06 Resp 20 07/13/21 04:06 BP 104/70 07/13/21 04:06 Pulse Ox 92 L 07/13/21 04:06 Weight - Most Recent: 218 lb 8 oz I&O - Last 24 Hours: Intake & Output 07/12/21 07/13/21 07/13/21 22:59 06:59 14:59 Intake Total 300 1020 Output Total 900 Balance -600 1020 Lab Results Last 24 Hours: Laboratory Results - last 24 hr 07/12/21 07/13/21 07/13/21 Range/Units 06:44 05:44 05:44 WBC 7.26 (4.0-11.0) K/uL RBC 5.82 (4.50-5.90) M/uL Hgb 19.0 H (13.0-17.0) g/dL Hct 53.7 H (38.0-50.0) % MCV 92.3 (80.0-98.0) fL MCH 32.6 H (27.0-32.0) pg MCHC 35.4 (31.0-37.0) g/dL RDW Std Deviation 46.2 (28.0-62.0) fl RDW Coeff of Roldan 14 (11.0-15.0) % Plt Count 192 (150-400) K/uL MPV 10.90 (7.40-12.00) fL Neut % (Auto) 78.4 (48.0-80.0) % Lymph % (Auto) 12.3 L (16.0-40.0) % Price % (Auto) 9.2 (0.0-15.0) % Eos % (Auto) 0.0 (0.0-7.0) % Baso % (Auto) 0.1 (0.0-1.5) % Neut # (Auto) 5.7 (1.4-5.7) K/uL Lymph # (Auto) 0.9 (0.6-2.4) K/uL Price # (Auto) 0.7 (0.0-0.8) K/uL Eos # (Auto) 0.0 (0.0-0.7) K/uL Baso # (Auto) 0.0 (0.0-0.1) K/uL Nucleated RBC % 0.0 /100WBC Nucleated RBCs # 0 K/uL Sodium 133 L 134 L (136-148) mmol/L Potassium 4.6 4.6 (3.5-5.1) mmol/L Chloride 98 99 (98-107) mmol/L Carbon Dioxide 24.8 25.3 (21.0-32.0) mmol/L BUN 23 H 26 H (7.0-18.0) mg/dL Creatinine 1.1 1.1 (0.8-1.3) mg/dL Est Cr Clr Drug Dosing 89.37 89.37 mL/min Estimated GFR (MDRD) > 60.0 > 60.0 ml/min Glucose 140 H 128 H (74-106) mg/dL Calcium 7.9 L 8.1 L (8.5-10.1) mg/dL Total Bilirubin 0.6 0.6 (0.2-1.0) mg/dL AST 44 H 43 H (15-37) IU/L ALT 44 47 (14-63) IU/L Alkaline Phosphatase 48 52 (46-116) U/L Total Protein 7.0 7.1 (6.4-8.2) g/dL Albumin 2.8 L 2.8 L (3.4-5.0) g/dL Globulin 4.2 H 4.3 H (2.6-4.0) g/dL Albumin/Globulin Ratio 0.7 L 0.7 L (0.9-1.6) Med Orders - Current: Current Medications Acetaminophen (Acetaminophen 325 Mg Tab) 650 mg PO Q4H PRN PRN Reason: Pain Last Admin: 07/12/21 11:49 Dose: 650 mg Documented by: Albuterol (Albuterol 8 Gm Inhaler) 0 gm INH Q4HR PRN PRN Reason: Cough Benzonatate (Benzonatate 100 Mg Cap) 100 mg PO Q6H PRN PRN Reason: Cough Last Admin: 07/13/21 02:13 Dose: 100 mg Documented by: Dexamethasone (Dexamethasone 4 Mg Tab) 6 mg PO Q24H [facility] Last Admin: 07/12/21 21:01 Dose: 6 mg Documented by: Enoxaparin Sodium (Enoxaparin 40 Mg/0.4 Ml Syringe) 40 mg SUBCUT Q24H [facility] Last Admin: 07/12/21 21:01 Dose: 40 mg Documented by: Guaifenesin/Codeine Phosphate (Codeine/Guaifenesin 10-100 Mg/5 Ml Syrup 5 Ml Cup) 5 ml PO Q6H PRN PRN Reason: Cough Last Admin: 07/12/21 11:19 Dose: 5 ml Documented by: Guaifenesin/Dextromethorphan (Guaifenesin/Dextromethorphan 100-10 Mg/5 Ml Soln 10 Ml Cup) 10 ml PO Q4H PRN PRN Reason: Cough Last Admin: 07/13/21 00:33 Dose: 10 ml Documented by: Remdesivir 100 mg/ Sodium (Chloride) 100 mls @ 100 mls/hr IV Q24H [facility] Stop: 07/14/21 22:59 Last Admin: 07/12/21 21:01 Dose: 100 mls/hr Documented by: Lisinopril (Lisinopril 10 Mg Tab) 20 mg PO BID [facility] Last Admin: 07/12/21 20:58 Dose: 20 mg Documented by: Melatonin (Melatonin 3 Mg Tab) 6 mg PO BEDTIME PRN PRN Reason: Insomnia Last Admin: 07/11/21 01:00 Dose: 6 mg Documented by: Sodium Chloride (Sodium Chloride 0.9% 10 Ml Syringe) 10 ml FLUSH ASDIRECTED PRN PRN Reason: Keep Vein Open Last Admin: 07/10/21 16:57 Dose: 10 ml Documented by: Sodium Chloride (Sodium Chloride 0.9% 2.5 Ml Syringe) 2.5 ml FLUSH ASDIRECTED PRN PRN Reason: Keep Vein Open Last Admin: 07/10/21 16:57 Dose: 2.5 ml Documented by: Discontinued Medications Acetaminophen (Acetaminophen 500 Mg Tab) 1,000 mg PO ONETIME ONE Stop: 07/10/21 16:50 Last Admin: 07/10/21 16:56 Dose: 1,000 mg Documented by: Sodium Chloride (Normal Saline) 1,000 mls @ 1,000 mls/hr IV .Bolus ONE Stop: 07/10/21 18:38 Last Admin: 07/10/21 17:42 Dose: 1,000 mls/hr Documented by: Sodium Chloride (Normal Saline) 1,000 mls @ 1,000 mls/hr IV .Bolus ONE Stop: 07/10/21 18:38 Last Admin: 07/10/21 19:02 Dose: 1,000 mls/hr Documented by: Remdesivir 200 mg/ Sodium (Chloride) 250 mls @ 250 mls/hr IV ONETIME ONE Stop: 07/10/21 21:49 Last Admin: 07/10/21 23:06 Dose: 250 mls/hr Documented by: Iopamidol (Iopamidol 755 Mg/Ml 500 Ml Multipack Bottle) 100 ml IVPUSH ONETIME ONE Stop: 07/10/21 18:32 Last Admin: 07/10/21 18:33 Dose: 100 ml Documented by: - Patient Data Lab Results Last 24 hrs: Laboratory Results - last 24 hr 07/12/21 07/13/21 07/13/21 Range/Units 06:44 05:44 05:44 WBC 7.26 (4.0-11.0) K/uL RBC 5.82 (4.50-5.90) M/uL Hgb 19.0 H (13.0-17.0) g/dL Hct 53.7 H (38.0-50.0) % MCV 92.3 (80.0-98.0) fL MCH 32.6 H (27.0-32.0) pg MCHC 35.4 (31.0-37.0) g/dL RDW Std Deviation 46.2 (28.0-62.0) fl RDW Coeff of Roldan 14 (11.0-15.0) % Plt Count 192 (150-400) K/uL MPV 10.90 (7.40-12.00) fL Neut % (Auto) 78.4 (48.0-80.0) % Lymph % (Auto) 12.3 L (16.0-40.0) % Price % (Auto) 9.2 (0.0-15.0) % Eos % (Auto) 0.0 (0.0-7.0) % Baso % (Auto) 0.1 (0.0-1.5) % Neut # (Auto) 5.7 (1.4-5.7) K/uL Lymph # (Auto) 0.9 (0.6-2.4) K/uL Price # (Auto) 0.7 (0.0-0.8) K/uL Eos # (Auto) 0.0 (0.0-0.7) K/uL Baso # (Auto) 0.0 (0.0-0.1) K/uL Nucleated RBC % 0.0 /100WBC Nucleated RBCs # 0 K/uL Sodium 133 L 134 L (136-148) mmol/L Potassium 4.6 4.6 (3.5-5.1) mmol/L Chloride 98 99 (98-107) mmol/L Carbon Dioxide 24.8 25.3 (21.0-32.0) mmol/L BUN 23 H 26 H (7.0-18.0) mg/dL Creatinine 1.1 1.1 (0.8-1.3) mg/dL Est Cr Clr Drug Dosing 89.37 89.37 mL/min Estimated GFR (MDRD) > 60.0 > 60.0 ml/min Glucose 140 H 128 H (74-106) mg/dL Calcium 7.9 L 8.1 L (8.5-10.1) mg/dL Total Bilirubin 0.6 0.6 (0.2-1.0) mg/dL AST 44 H 43 H (15-37) IU/L ALT 44 47 (14-63) IU/L Alkaline Phosphatase 48 52 (46-116) U/L Total Protein 7.0 7.1 (6.4-8.2) g/dL Albumin 2.8 L 2.8 L (3.4-5.0) g/dL Globulin 4.2 H 4.3 H (2.6-4.0) g/dL Albumin/Globulin Ratio 0.7 L 0.7 L (0.9-1.6) Result Diagrams: 07/13/21 05:44 07/13/21 05:44 Sepsis Event Note - Evaluation Sepsis Screening Result: No Definite Risk - Focused Exam Vital Signs: Vital Signs Temp Pulse Resp BP BP Pulse Ox 07/13/21 04:06 97.6 F 91 20 104/70 92 L 07/12/21 23:57 96.9 F 88 17 112/72 92 L 07/12/21 20:58 117/80 07/12/21 19:53 97 F 97 16 117/80 91 L - Plan Plan:: Covid pneumonia: -Remdesivir 100 mg, final dose 07/14/2021. -Dexamethasone 6 mg. Lovenox 40 mg. -Acetaminophen 650. Albuterol q4hr prn. Tessalon Eugene. Robitussin. Melatonin. - Lisinopril 20 mg bid.
[2021-07-13] MEDS: Lisinopril 10 MG Tab PO SCH ×2 (09:53→21:09)
[2021-07-13] MEDS ORDERED: Codeine/guaiFENesin 10-100 MG/5 ML Syrup 5 ML Cup PO PRN (12:23)
[2021-07-13] MEDS: Codeine/guaiFENesin 10-100 MG/5 ML Syrup 5 ML Cup PO PRN ×3 (12:47→21:08)
--- NOTE | 2021-07-13 13:41 | PCM.PN ---
- General Info Date of Service: 07/13/21 Subjective Update: Cough upon movement which causes him to go into coughing spells, bedside nurse had increased oxygen during the spells. Functional Status: Reports: Tolerating Diet, Ambulating, Urinating, Other (cough) - Review of Systems General: Reports: Weakness, Fatigue, Malaise. Denies: Fever Pulmonary: Reports: Shortness of Breath, Cough, Sputum. Denies: Hemoptysis, Wheezing Cardiovascular: Reports: Dyspnea on Exertion. Denies: Chest Pain, Palpitations, Orthopnea, PND Gastrointestinal: Denies: Abdominal Pain, Constipation, Decreased Appetite, Diarrhea Genitourinary: Denies: Dysuria, Frequency, Burning, Pain Musculoskeletal: Denies: Neck Pain, Shoulder Pain, Arm Pain, Hand Pain Skin: Denies: Cyanosis, Jaundice, Mottled, Pallor Neurological: Denies: Confusion, Dizziness, Headache, Numbness - Patient Data Vitals - Most Recent: Last Vital Signs Temp 35.6 C L 07/13/21 08:00 Pulse 87 07/13/21 08:00 Resp 21 H 07/13/21 12:10 BP 115/70 07/13/21 09:53 Pulse Ox 90 L 07/13/21 12:10 Weight - Most Recent: 99.11 kg I&O - Last 24 Hours: Intake & Output 07/12/21 07/13/21 07/13/21 22:59 06:59 14:59 Intake Total 300 1020 Output Total 900 Balance -600 1020 Lab Results Last 24 Hours: Laboratory Results - last 24 hr 07/13/21 07/13/21 Range/Units 05:44 05:44 WBC 7.26 (4.0-11.0) K/uL RBC 5.82 (4.50-5.90) M/uL Hgb 19.0 H (13.0-17.0) g/dL Hct 53.7 H (38.0-50.0) % MCV 92.3 (80.0-98.0) fL MCH 32.6 H (27.0-32.0) pg MCHC 35.4 (31.0-37.0) g/dL RDW Std Deviation 46.2 (28.0-62.0) fl RDW Coeff of [place]old[place] 14 (11.0-15.0) % Plt Count 192 (150-400) K/uL MPV 10.90 (7.40-12.00) fL Neut % (Auto) 78.4 (48.0-80.0) % Lymph % (Auto) 12.3 L (16.0-40.0) % [place] % (Auto) 9.2 (0.0-15.0) % Eos % (Auto) 0.0 (0.0-7.0) % Baso % (Auto) 0.1 (0.0-1.5) % Neut # (Auto) 5.7 (1.4-5.7) K/uL Lymph # (Auto) 0.9 (0.6-2.4) K/uL [place] # (Auto) 0.7 (0.0-0.8) K/uL Eos # (Auto) 0.0 (0.0-0.7) K/uL Baso # (Auto) 0.0 (0.0-0.1) K/uL Nucleated RBC % 0.0 /100WBC Nucleated RBCs # 0 K/uL Sodium 134 L (136-148) mmol/L Potassium 4.6 (3.5-5.1) mmol/L Chloride 99 (98-107) mmol/L Carbon Dioxide 25.3 (21.0-32.0) mmol/L BUN 26 H (7.0-18.0) mg/dL Creatinine 1.1 (0.8-1.3) mg/dL Est Cr Clr Drug Dosing 89.37 mL/min Estimated GFR (MDRD) > 60.0 ml/min Glucose 128 H (74-106) mg/dL Calcium 8.1 L (8.5-10.1) mg/dL Total Bilirubin 0.6 (0.2-1.0) mg/dL AST 43 H (15-37) IU/L ALT 47 (14-63) IU/L Alkaline Phosphatase 52 (46-116) U/L Total Protein 7.1 (6.4-8.2) g/dL Albumin 2.8 L (3.4-5.0) g/dL Globulin 4.3 H (2.6-4.0) g/dL Albumin/Globulin Ratio 0.7 L (0.9-1.6) Med Orders - Current: Current Medications Acetaminophen (Acetaminophen 325 Mg Tab) 650 mg PO Q4H PRN PRN Reason: Pain Last Admin: 07/12/21 11:49 Dose: 650 mg Documented by: Albuterol (Albuterol 8 Gm Inhaler) 0 gm INH Q4HR PRN PRN Reason: Cough Benzonatate (Benzonatate 100 Mg Cap) 100 mg PO Q6H PRN PRN Reason: Cough Last Admin: 07/13/21 12:04 Dose: 100 mg Documented by: Dexamethasone (Dexamethasone 4 Mg Tab) 6 mg PO Q24H [facility] Last Admin: 07/12/21 21:01 Dose: 6 mg Documented by: Enoxaparin Sodium (Enoxaparin 40 Mg/0.4 Ml Syringe) 40 mg SUBCUT Q24H [facility] Last Admin: 07/12/21 21:01 Dose: 40 mg Documented by: Guaifenesin/Codeine Phosphate (Codeine/Guaifenesin 10-100 Mg/5 Ml Syrup 5 Ml Cup) 10 ml PO Q4H PRN PRN Reason: Cough Last Admin: 07/13/21 12:47 Dose: 10 ml Documented by: Remdesivir 100 mg/ Sodium (Chloride) 100 mls @ 100 mls/hr IV Q24H [facility] Stop: 07/14/21 22:59 Last Admin: 07/12/21 21:01 Dose: 100 mls/hr Documented by: Lisinopril (Lisinopril 10 Mg Tab) 20 mg PO BID [facility] Last Admin: 07/13/21 09:53 Dose: 20 mg Documented by: Melatonin (Melatonin 3 Mg Tab) 6 mg PO BEDTIME PRN PRN Reason: Insomnia Last Admin: 07/11/21 01:00 Dose: 6 mg Documented by: Sodium Chloride (Sodium Chloride 0.9% 10 Ml Syringe) 10 ml FLUSH ASDIRECTED PRN PRN Reason: Keep Vein Open Last Admin: 07/10/21 16:57 Dose: 10 ml Documented by: Sodium Chloride (Sodium Chloride 0.9% 2.5 Ml Syringe) 2.5 ml FLUSH ASDIRECTED PRN PRN Reason: Keep Vein Open Last Admin: 07/10/21 16:57 Dose: 2.5 ml Documented by: Discontinued Medications Acetaminophen (Acetaminophen 500 Mg Tab) 1,000 mg PO ONETIME ONE Stop: 07/10/21 16:50 Last Admin: 07/10/21 16:56 Dose: 1,000 mg Documented by: Guaifenesin/Codeine Phosphate (Codeine/Guaifenesin 10-100 Mg/5 Ml Syrup 5 Ml Cup) 5 ml PO Q6H PRN PRN Reason: Cough Last Admin: 07/12/21 11:19 Dose: 5 ml Documented by: Guaifenesin/Codeine Phosphate (Codeine/Guaifenesin 10-100 Mg/5 Ml Syrup 5 Ml Cup) 5 ml PO Q4H PRN PRN Reason: Cough Guaifenesin/Dextromethorphan (Guaifenesin/Dextromethorphan 100-10 Mg/5 Ml Soln 10 Ml Cup) 10 ml PO Q4H PRN PRN Reason: Cough Last Admin: 07/13/21 10:00 Dose: 10 ml Documented by: Sodium Chloride (Normal Saline) 1,000 mls @ 1,000 mls/hr IV .Bolus ONE Stop: 07/10/21 18:38 Last Admin: 07/10/21 17:42 Dose: 1,000 mls/hr Documented by: Sodium Chloride (Normal Saline) 1,000 mls @ 1,000 mls/hr IV .Bolus ONE Stop: 07/10/21 18:38 Last Admin: 07/10/21 19:02 Dose: 1,000 mls/hr Documented by: Remdesivir 200 mg/ Sodium (Chloride) 250 mls @ 250 mls/hr IV ONETIME ONE Stop: 07/10/21 21:49 Last Admin: 07/10/21 23:06 Dose: 250 mls/hr Documented by: Iopamidol (Iopamidol 755 Mg/Ml 500 Ml Multipack Bottle) 100 ml IVPUSH ONETIME ONE Stop: 07/10/21 18:32 Last Admin: 07/10/21 18:33 Dose: 100 ml Documented by: - Exam Quality Assessment: Supplemental Oxygen General: Alert, Oriented Neck: Supple Lungs: Decreased Breath Sounds, Crackles, Rales Cardiovascular: Regular Rate, Regular Rhythm GI/Abdominal Exam: Normal Bowel Sounds, Soft, Non-Tender Extremities: Normal Inspection, Normal Range of Motion - Patient Data Lab Results Last 24 hrs: Laboratory Results - last 24 hr 07/13/21 07/13/21 Range/Units 05:44 05:44 WBC 7.26 (4.0-11.0) K/uL RBC 5.82 (4.50-5.90) M/uL Hgb 19.0 H (13.0-17.0) g/dL Hct 53.7 H (38.0-50.0) % MCV 92.3 (80.0-98.0) fL MCH 32.6 H (27.0-32.0) pg MCHC 35.4 (31.0-37.0) g/dL RDW Std Deviation 46.2 (28.0-62.0) fl RDW Coeff of [place] 14 (11.0-15.0) % Plt Count 192 (150-400) K/uL MPV 10.90 (7.40-12.00) fL Neut % (Auto) 78.4 (48.0-80.0) % Lymph % (Auto) 12.3 L (16.0-40.0) % [place] % (Auto) 9.2 (0.0-15.0) % Eos % (Auto) 0.0 (0.0-7.0) % Baso % (Auto) 0.1 (0.0-1.5) % Neut # (Auto) 5.7 (1.4-5.7) K/uL Lymph # (Auto) 0.9 (0.6-2.4) K/uL [place] # (Auto) 0.7 (0.0-0.8) K/uL Eos # (Auto) 0.0 (0.0-0.7) K/uL Baso # (Auto) 0.0 (0.0-0.1) K/uL Nucleated RBC % 0.0 /100WBC Nucleated RBCs # 0 K/uL Sodium 134 L (136-148) mmol/L Potassium 4.6 (3.5-5.1) mmol/L Chloride 99 (98-107) mmol/L Carbon Dioxide 25.3 (21.0-32.0) mmol/L BUN 26 H (7.0-18.0) mg/dL Creatinine 1.1 (0.8-1.3) mg/dL Est Cr Clr Drug Dosing 89.37 mL/min Estimated GFR (MDRD) > 60.0 ml/min Glucose 128 H (74-106) mg/dL Calcium 8.1 L (8.5-10.1) mg/dL Total Bilirubin 0.6 (0.2-1.0) mg/dL AST 43 H (15-37) IU/L ALT 47 (14-63) IU/L Alkaline Phosphatase 52 (46-116) U/L Total Protein 7.1 (6.4-8.2) g/dL Albumin 2.8 L (3.4-5.0) g/dL Globulin 4.3 H (2.6-4.0) g/dL Albumin/Globulin Ratio 0.7 L (0.9-1.6) Result Diagrams: 07/13/21 05:44 07/13/21 05:44 Sepsis Event Note - Evaluation Sepsis Screening Result: No Definite Risk - Focused Exam Vital Signs: Vital Signs Temp Pulse Resp BP BP Pulse Ox Pulse Ox 07/13/21 12:10 21 H 90 L 07/13/21 12:06 20 87 L 07/13/21 10:04 90 L 07/13/21 09:53 115/70 07/13/21 08:00 35.6 C L 87 20 107/76 90 L 07/13/21 04:06 36.4 C 91 20 104/70 92 L - Problem List & Annotations (1) Dyspnea SNOMED Code(s): 636069618 Code(s): R06.00 - DYSPNEA, UNSPECIFIED Status: Acute Current Visit: Yes (2) Erythrocytosis SNOMED Code(s): 607127459, 153342948 Code(s): D75.1 - SECONDARY POLYCYTHEMIA Status: Acute Current Visit: Yes (3) Hypoxia SNOMED Code(s): 341784856 Code(s): R09.02 - HYPOXEMIA Status: Acute Current Visit: Yes (4) Pneumonia due to COVID-19 virus SNOMED Code(s): 949628006725016754 Code(s): U07.1 - COVID-19; J12.82 - PNEUMONIA DUE TO CORONAVIRUS DISEASE 2019 Status: Acute Current Visit: Yes (5) Polycythemia SNOMED Code(s): 388524132 Code(s): D75.1 - SECONDARY POLYCYTHEMIA Status: Acute Current Visit: Yes (6) Acute hypoxemic respiratory failure due to COVID-19 SNOMED Code(s): 085542295 Code(s): U07.1 - COVID-19; J96.01 - ACUTE RESPIRATORY FAILURE WITH HYPOXIA Status: Acute Current Visit: Yes - Problem List Review Problem List Initiated/Reviewed/Updated: Yes - My Orders Last 24 Hours: My Active Orders 07/13/21 12:38 Codeine/guaiFENesin [Robitussin AC] 10 ml PO Q4H PRN - Plan Plan:: 46 yo male admitted for covid pneumonia with hypoxia Hypoxia: on 3-4 L NC COVID pneumonia: cont remdesivir and dexamethasone Continue duo nebs Continue cough syrup with codeine as needed for cough Lovenox for DVT prophylaxis 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
[2021-07-13] MEDS: Dexamethasone 4 MG Tab PO SCH (21:09)
[2021-07-13] MEDS: REMDESIVIR 100 MG in Sodium Chloride 0.9% 100 ML IV SCH (21:10)
[2021-07-13] MEDS: Enoxaparin 40 MG/0.4 ML Syringe SUBCUT SCH (21:10)
[2021-07-14] MEDS: Codeine/guaiFENesin 10-100 MG/5 ML Syrup 5 ML Cup PO PRN ×2 (01:09→15:25)
[2021-07-14 07:48] LABS: BLOOD UREA NITROGEN,BUN 24 mg/dL (7.0-18.0); CARBON DIOXIDE,CO2 25.6 mmol/L (21.0-32.0); CHLORIDE,CL 100 mmol/L (98-107); GLUCOSE RANDOM 138 mg/dL (74-106); POTASSIUM,K 4.7 mmol/L (3.5-5.1); SODIUM,NA 134 mmol/L (136-148)
[2021-07-14] MEDS: Lisinopril 10 MG Tab PO SCH ×2 (09:34→21:57)
--- NOTE | 2021-07-14 14:07 | CR ---
INDICATION: Hypoxia TECHNIQUE: Chest radiograph 1 view COMPARISON: 07/10/2021 FINDINGS: The sensitivity and specificity of the exam are moderately limited by the patient`s body habitus. Mediastinum: The mediastinum is normal in appearance. The heart silhouette is normal in size and morphology. Lung: There are small lung volumes are present with patchy bibasilar discoid atelectasis seen. No sign of pleural effusion seen. No pneumothorax is identified. Bone and Soft tissue: Unremarkable for age. IMPRESSION: 1. There are small lung volumes are present with patchy bibasilar discoid atelectasis seen. Dictated by Ga Castillo MD @ 07/14/2021 2:05:46 PM Dictated by: Ga Castillo MD @ 07/14/2021 14:05:50 (Electronically Signed)
--- NOTE | 2021-07-14 19:15 | PCM.PN ---
- General Info Date of Service: 07/14/21 Subjective Update: Cough is much better today requiring 4 L of oxygen today, - Review of Systems General: Reports: Weakness, Fatigue, Malaise. Denies: Fever Pulmonary: Reports: Shortness of Breath, Cough, Sputum. Denies: Pleuritic Chest Pain Cardiovascular: Reports: Dyspnea on Exertion. Denies: Chest Pain, Palpitations Gastrointestinal: Denies: Abdominal Pain, Constipation, Decreased Appetite Genitourinary: Denies: Dysuria, Frequency, Burning Musculoskeletal: Denies: Neck Pain, Shoulder Pain, Arm Pain Skin: Denies: Cyanosis, Jaundice, Mottled - Patient Data Vitals - Most Recent: Last Vital Signs Temp 35.6 C L 07/14/21 16:00 Pulse 81 07/14/21 16:00 Resp 22 H 07/14/21 16:00 BP 108/77 07/14/21 16:00 Pulse Ox 90 L 07/14/21 16:00 Weight - Most Recent: 99.11 kg I&O - Last 24 Hours: Intake & Output 07/14/21 07/14/21 07/14/21 06:59 14:59 22:59 Intake Total 920 1000 Output Total 720 775 Balance 200 225 Lab Results Last 24 Hours: Laboratory Results - last 24 hr 07/14/21 07/14/21 Range/Units 06:46 06:46 WBC 4.63 (4.0-11.0) K/uL RBC 5.93 H (4.50-5.90) M/uL Hgb 19.3 H (13.0-17.0) g/dL Hct 54.9 H (38.0-50.0) % MCV 92.6 (80.0-98.0) fL MCH 32.5 H (27.0-32.0) pg MCHC 35.2 (31.0-37.0) g/dL RDW Std Deviation 46.1 (28.0-62.0) fl RDW Coeff of [place]old[place] 14 (11.0-15.0) % Plt Count 241 (150-400) K/uL MPV 10.60 (7.40-12.00) fL Neut % (Auto) 70.6 (48.0-80.0) % Lymph % (Auto) 20.3 (16.0-40.0) % [place] % (Auto) 8.9 (0.0-15.0) % Eos % (Auto) 0.0 (0.0-7.0) % Baso % (Auto) 0.2 (0.0-1.5) % Neut # (Auto) 3.3 (1.4-5.7) K/uL Lymph # (Auto) 0.9 (0.6-2.4) K/uL [place] # (Auto) 0.4 (0.0-0.8) K/uL Eos # (Auto) 0.0 (0.0-0.7) K/uL Baso # (Auto) 0.0 (0.0-0.1) K/uL Nucleated RBC % 0.0 /100WBC Nucleated RBCs # 0 K/uL Sodium 134 L (136-148) mmol/L Potassium 4.7 (3.5-5.1) mmol/L Chloride 100 (98-107) mmol/L Carbon Dioxide 25.6 (21.0-32.0) mmol/L BUN 24 H (7.0-18.0) mg/dL Creatinine 1.0 (0.8-1.3) mg/dL Est Cr Clr Drug Dosing 98.31 mL/min Estimated GFR (MDRD) > 60.0 ml/min Glucose 138 H (74-106) mg/dL Calcium 8.1 L (8.5-10.1) mg/dL Total Bilirubin 0.7 (0.2-1.0) mg/dL AST 40 H (15-37) IU/L ALT 51 (14-63) IU/L Alkaline Phosphatase 51 (46-116) U/L Total Protein 7.0 (6.4-8.2) g/dL Albumin 2.8 L (3.4-5.0) g/dL Globulin 4.2 H (2.6-4.0) g/dL Albumin/Globulin Ratio 0.7 L (0.9-1.6) Med Orders - Current: Current Medications Acetaminophen (Acetaminophen 325 Mg Tab) 650 mg PO Q4H PRN PRN Reason: Pain Last Admin: 07/12/21 11:49 Dose: 650 mg Documented by: Albuterol (Albuterol 8 Gm Inhaler) 0 gm INH Q4HR PRN PRN Reason: Cough Benzonatate (Benzonatate 100 Mg Cap) 100 mg PO Q6H PRN PRN Reason: Cough Last Admin: 07/13/21 12:04 Dose: 100 mg Documented by: Dexamethasone (Dexamethasone 4 Mg Tab) 6 mg PO Q24H [facility] Last Admin: 07/13/21 21:09 Dose: 6 mg Documented by: Enoxaparin Sodium (Enoxaparin 40 Mg/0.4 Ml Syringe) 40 mg SUBCUT Q24H [facility] Last Admin: 07/13/21 21:10 Dose: 40 mg Documented by: Guaifenesin/Codeine Phosphate (Codeine/Guaifenesin 10-100 Mg/5 Ml Syrup 5 Ml Cup) 10 ml PO Q4H PRN PRN Reason: Cough Last Admin: 07/14/21 15:25 Dose: 10 ml Documented by: Remdesivir 100 mg/ Sodium (Chloride) 100 mls @ 100 mls/hr IV Q24H [facility] Stop: 07/14/21 22:59 Last Admin: 07/13/21 21:10 Dose: 100 mls/hr Documented by: Lisinopril (Lisinopril 10 Mg Tab) 20 mg PO BID [facility] Last Admin: 07/14/21 09:34 Dose: 20 mg Documented by: Melatonin (Melatonin 3 Mg Tab) 6 mg PO BEDTIME PRN PRN Reason: Insomnia Last Admin: 07/11/21 01:00 Dose: 6 mg Documented by: Sodium Chloride (Sodium Chloride 0.9% 10 Ml Syringe) 10 ml FLUSH ASDIRECTED PRN PRN Reason: Keep Vein Open Last Admin: 07/10/21 16:57 Dose: 10 ml Documented by: Sodium Chloride (Sodium Chloride 0.9% 2.5 Ml Syringe) 2.5 ml FLUSH ASDIRECTED PRN PRN Reason: Keep Vein Open Last Admin: 07/10/21 16:57 Dose: 2.5 ml Documented by: Discontinued Medications Acetaminophen (Acetaminophen 500 Mg Tab) 1,000 mg PO ONETIME ONE Stop: 07/10/21 16:50 Last Admin: 07/10/21 16:56 Dose: 1,000 mg Documented by: Guaifenesin/Codeine Phosphate (Codeine/Guaifenesin 10-100 Mg/5 Ml Syrup 5 Ml Cup) 5 ml PO Q6H PRN PRN Reason: Cough Last Admin: 07/12/21 11:19 Dose: 5 ml Documented by: Guaifenesin/Codeine Phosphate (Codeine/Guaifenesin 10-100 Mg/5 Ml Syrup 5 Ml Cup) 5 ml PO Q4H PRN PRN Reason: Cough Guaifenesin/Dextromethorphan (Guaifenesin/Dextromethorphan 100-10 Mg/5 Ml Soln 10 Ml Cup) 10 ml PO Q4H PRN PRN Reason: Cough Last Admin: 07/13/21 10:00 Dose: 10 ml Documented by: Sodium Chloride (Normal Saline) 1,000 mls @ 1,000 mls/hr IV .Bolus ONE Stop: 07/10/21 18:38 Last Admin: 07/10/21 17:42 Dose: 1,000 mls/hr Documented by: Sodium Chloride (Normal Saline) 1,000 mls @ 1,000 mls/hr IV .Bolus ONE Stop: 07/10/21 18:38 Last Admin: 07/10/21 19:02 Dose: 1,000 mls/hr Documented by: Remdesivir 200 mg/ Sodium (Chloride) 250 mls @ 250 mls/hr IV ONETIME ONE Stop: 07/10/21 21:49 Last Admin: 07/10/21 23:06 Dose: 250 mls/hr Documented by: Iopamidol (Iopamidol 755 Mg/Ml 500 Ml Multipack Bottle) 100 ml IVPUSH ONETIME ONE Stop: 07/10/21 18:32 Last Admin: 07/10/21 18:33 Dose: 100 ml Documented by: - Exam Quality Assessment: Supplemental Oxygen General: Alert, Oriented, Cooperative, No Acute Distress Lungs: Normal Respiratory Effort, Decreased Breath Sounds, Crackles Cardiovascular: Regular Rate, Regular Rhythm GI/Abdominal Exam: Normal Bowel Sounds, Soft, Non-Tender Extremities: Normal Inspection, Normal Range of Motion - Patient Data Lab Results Last 24 hrs: Laboratory Results - last 24 hr 07/14/21 07/14/21 Range/Units 06:46 06:46 WBC 4.63 (4.0-11.0) K/uL RBC 5.93 H (4.50-5.90) M/uL Hgb 19.3 H (13.0-17.0) g/dL Hct 54.9 H (38.0-50.0) % MCV 92.6 (80.0-98.0) fL MCH 32.5 H (27.0-32.0) pg MCHC 35.2 (31.0-37.0) g/dL RDW Std Deviation 46.1 (28.0-62.0) fl RDW Coeff of [place] 14 (11.0-15.0) % Plt Count 241 (150-400) K/uL MPV 10.60 (7.40-12.00) fL Neut % (Auto) 70.6 (48.0-80.0) % Lymph % (Auto) 20.3 (16.0-40.0) % [place] % (Auto) 8.9 (0.0-15.0) % Eos % (Auto) 0.0 (0.0-7.0) % Baso % (Auto) 0.2 (0.0-1.5) % Neut # (Auto) 3.3 (1.4-5.7) K/uL Lymph # (Auto) 0.9 (0.6-2.4) K/uL [place] # (Auto) 0.4 (0.0-0.8) K/uL Eos # (Auto) 0.0 (0.0-0.7) K/uL Baso # (Auto) 0.0 (0.0-0.1) K/uL Nucleated RBC % 0.0 /100WBC Nucleated RBCs # 0 K/uL Sodium 134 L (136-148) mmol/L Potassium 4.7 (3.5-5.1) mmol/L Chloride 100 (98-107) mmol/L Carbon Dioxide 25.6 (21.0-32.0) mmol/L BUN 24 H (7.0-18.0) mg/dL Creatinine 1.0 (0.8-1.3) mg/dL Est Cr Clr Drug Dosing 98.31 mL/min Estimated GFR (MDRD) > 60.0 ml/min Glucose 138 H (74-106) mg/dL Calcium 8.1 L (8.5-10.1) mg/dL Total Bilirubin 0.7 (0.2-1.0) mg/dL AST 40 H (15-37) IU/L ALT 51 (14-63) IU/L Alkaline Phosphatase 51 (46-116) U/L Total Protein 7.0 (6.4-8.2) g/dL Albumin 2.8 L (3.4-5.0) g/dL Globulin 4.2 H (2.6-4.0) g/dL Albumin/Globulin Ratio 0.7 L (0.9-1.6) Result Diagrams: 07/14/21 06:46 07/14/21 06:46 Sepsis Event Note - Evaluation Sepsis Screening Result: No Definite Risk - Focused Exam Vital Signs: Vital Signs Temp Pulse Resp BP BP Pulse Ox 07/14/21 16:00 35.6 C L 81 22 H 108/77 90 L 07/14/21 11:35 35.6 C L 71 22 H 109/73 90 L 07/14/21 09:34 110/70 07/14/21 08:00 35.7 C L 76 20 110/70 92 L - Problem List & Annotations (1) Dyspnea SNOMED Code(s): 789897461 Code(s): R06.00 - DYSPNEA, UNSPECIFIED Status: Acute Current Visit: Yes (2) Erythrocytosis SNOMED Code(s): 306702301, 677010003 Code(s): D75.1 - SECONDARY POLYCYTHEMIA Status: Acute Current Visit: Yes (3) Hypoxia SNOMED Code(s): 220808704 Code(s): R09.02 - HYPOXEMIA Status: Acute Current Visit: Yes (4) Pneumonia due to COVID-19 virus SNOMED Code(s): 378671047556602277 Code(s): U07.1 - COVID-19; J12.82 - PNEUMONIA DUE TO CORONAVIRUS DISEASE 2019 Status: Acute Current Visit: Yes (5) Polycythemia SNOMED Code(s): 178947592 Code(s): D75.1 - SECONDARY POLYCYTHEMIA Status: Acute Current Visit: Yes (6) Acute hypoxemic respiratory failure due to COVID-19 SNOMED Code(s): 214004799 Code(s): U07.1 - COVID-19; J96.01 - ACUTE RESPIRATORY FAILURE WITH HYPOXIA Status: Acute Current Visit: Yes - Problem List Review Problem List Initiated/Reviewed/Updated: Yes - Plan Plan:: 46 yo male admitted for covid pneumonia with hypoxia Hypoxia: on 3-4 L NC COVID pneumonia: cont remdesivir and dexamethasone Continue duo nebs Continue cough syrup with codeine as needed for cough Lovenox for DVT prophylaxis 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
[2021-07-14] MEDS: Dexamethasone 4 MG Tab PO SCH (21:58)
[2021-07-14] MEDS: Enoxaparin 40 MG/0.4 ML Syringe SUBCUT SCH (21:58)
[2021-07-14] MEDS: REMDESIVIR 100 MG in Sodium Chloride 0.9% 100 ML IV SCH (21:58)
[2021-07-15] MEDS: Codeine/guaiFENesin 10-100 MG/5 ML Syrup 5 ML Cup PO PRN ×2 (00:14→20:18)
[2021-07-15 07:56] LABS: BLOOD UREA NITROGEN,BUN 21 mg/dL (7.0-18.0); CARBON DIOXIDE,CO2 24.5 mmol/L (21.0-32.0); CHLORIDE,CL 100 mmol/L (98-107); GLUCOSE RANDOM 133 mg/dL (74-106); POTASSIUM,K 4.7 mmol/L (3.5-5.1); SODIUM,NA 133 mmol/L (136-148)
[2021-07-15] MEDS: Lisinopril 10 MG Tab PO SCH ×2 (10:13→20:22)
--- NOTE | 2021-07-15 17:53 | PCM.PN ---
- General Info Date of Service: 07/15/21 Subjective Update: Feels much better, currently needing 3 L of oxygen Functional Status: Reports: Tolerating Diet, Ambulating, Urinating - Review of Systems General: Denies: Weakness, Fatigue, Malaise Cardiovascular: Reports: Dyspnea on Exertion. Denies: Chest Pain, Palpitations Gastrointestinal: Denies: Abdominal Pain, Constipation, Decreased Appetite Genitourinary: Denies: Dysuria, Frequency, Burning Musculoskeletal: Denies: Neck Pain, Shoulder Pain, Arm Pain Skin: Denies: Cyanosis, Jaundice, Mottled Neurological: Denies: Confusion, Dizziness, Headache - Patient Data Vitals - Most Recent: Last Vital Signs Temp 36.0 C L 07/15/21 12:00 Pulse 64 07/15/21 12:00 Resp 20 07/15/21 12:00 BP 111/73 07/15/21 12:00 Pulse Ox 91 L 07/15/21 12:00 Weight - Most Recent: 99.11 kg I&O - Last 24 Hours: Intake & Output 07/15/21 07/15/21 07/15/21 06:59 14:59 22:59 Intake Total 650 520 Output Total 700 0 Balance -50 520 Lab Results Last 24 Hours: Laboratory Results - last 24 hr 07/15/21 07/15/21 Range/Units 05:33 05:33 WBC 5.00 (4.0-11.0) K/uL RBC 5.80 (4.50-5.90) M/uL Hgb 19.0 H (13.0-17.0) g/dL Hct 53.3 H (38.0-50.0) % MCV 91.9 (80.0-98.0) fL MCH 32.8 H (27.0-32.0) pg MCHC 35.6 (31.0-37.0) g/dL RDW Std Deviation 45.8 (28.0-62.0) fl RDW Coeff of [place] 14 (11.0-15.0) % Plt Count 253 (150-400) K/uL MPV 11.10 (7.40-12.00) fL Neut % (Auto) 73.6 (48.0-80.0) % Lymph % (Auto) 19.0 (16.0-40.0) % [place] % (Auto) 7.2 (0.0-15.0) % Eos % (Auto) 0.0 (0.0-7.0) % Baso % (Auto) 0.2 (0.0-1.5) % Neut # (Auto) 3.7 (1.4-5.7) K/uL Lymph # (Auto) 1.0 (0.6-2.4) K/uL [place] # (Auto) 0.4 (0.0-0.8) K/uL Eos # (Auto) 0.0 (0.0-0.7) K/uL Baso # (Auto) 0.0 (0.0-0.1) K/uL Nucleated RBC % 0.0 /100WBC Nucleated RBCs # 0 K/uL Sodium 133 L (136-148) mmol/L Potassium 4.7 (3.5-5.1) mmol/L Chloride 100 (98-107) mmol/L Carbon Dioxide 24.5 (21.0-32.0) mmol/L BUN 21 H (7.0-18.0) mg/dL Creatinine 1.0 (0.8-1.3) mg/dL Est Cr Clr Drug Dosing 98.31 mL/min Estimated GFR (MDRD) > 60.0 ml/min Glucose 133 H (74-106) mg/dL Calcium 8.0 L (8.5-10.1) mg/dL Total Bilirubin 0.7 (0.2-1.0) mg/dL AST 38 H (15-37) IU/L ALT 53 (14-63) IU/L Alkaline Phosphatase 52 (46-116) U/L Total Protein 6.7 (6.4-8.2) g/dL Albumin 2.7 L (3.4-5.0) g/dL Globulin 4.0 (2.6-4.0) g/dL Albumin/Globulin Ratio 0.7 L (0.9-1.6) Med Orders - Current: Current Medications Acetaminophen (Acetaminophen 325 Mg Tab) 650 mg PO Q4H PRN PRN Reason: Pain Last Admin: 07/12/21 11:49 Dose: 650 mg Documented by: Albuterol (Albuterol 8 Gm Inhaler) 0 gm INH Q4HR PRN PRN Reason: Cough Benzonatate (Benzonatate 100 Mg Cap) 100 mg PO Q6H PRN PRN Reason: Cough Last Admin: 07/13/21 12:04 Dose: 100 mg Documented by: Dexamethasone (Dexamethasone 4 Mg Tab) 6 mg PO Q24H [facility] Last Admin: 07/14/21 21:58 Dose: 6 mg Documented by: Enoxaparin Sodium (Enoxaparin 40 Mg/0.4 Ml Syringe) 40 mg SUBCUT Q24H [facility] Last Admin: 07/14/21 21:58 Dose: 40 mg Documented by: Guaifenesin/Codeine Phosphate (Codeine/Guaifenesin 10-100 Mg/5 Ml Syrup 5 Ml Cup) 10 ml PO Q4H PRN PRN Reason: Cough Last Admin: 07/15/21 00:14 Dose: 10 ml Documented by: Lisinopril (Lisinopril 10 Mg Tab) 20 mg PO BID [facility] Last Admin: 07/15/21 10:13 Dose: Not Given Documented by: Melatonin (Melatonin 3 Mg Tab) 6 mg PO BEDTIME PRN PRN Reason: Insomnia Last Admin: 07/11/21 01:00 Dose: 6 mg Documented by: Sodium Chloride (Sodium Chloride 0.9% 10 Ml Syringe) 10 ml FLUSH ASDIRECTED PRN PRN Reason: Keep Vein Open Last Admin: 07/10/21 16:57 Dose: 10 ml Documented by: Sodium Chloride (Sodium Chloride 0.9% 2.5 Ml Syringe) 2.5 ml FLUSH ASDIRECTED PRN PRN Reason: Keep Vein Open Last Admin: 07/10/21 16:57 Dose: 2.5 ml Documented by: Discontinued Medications Acetaminophen (Acetaminophen 500 Mg Tab) 1,000 mg PO ONETIME ONE Stop: 07/10/21 16:50 Last Admin: 07/10/21 16:56 Dose: 1,000 mg Documented by: Guaifenesin/Codeine Phosphate (Codeine/Guaifenesin 10-100 Mg/5 Ml Syrup 5 Ml Cup) 5 ml PO Q6H PRN PRN Reason: Cough Last Admin: 07/12/21 11:19 Dose: 5 ml Documented by: Guaifenesin/Codeine Phosphate (Codeine/Guaifenesin 10-100 Mg/5 Ml Syrup 5 Ml Cup) 5 ml PO Q4H PRN PRN Reason: Cough Guaifenesin/Dextromethorphan (Guaifenesin/Dextromethorphan 100-10 Mg/5 Ml Soln 10 Ml Cup) 10 ml PO Q4H PRN PRN Reason: Cough Last Admin: 07/13/21 10:00 Dose: 10 ml Documented by: Sodium Chloride (Normal Saline) 1,000 mls @ 1,000 mls/hr IV .Bolus ONE Stop: 07/10/21 18:38 Last Admin: 07/10/21 17:42 Dose: 1,000 mls/hr Documented by: Sodium Chloride (Normal Saline) 1,000 mls @ 1,000 mls/hr IV .Bolus ONE Stop: 07/10/21 18:38 Last Admin: 07/10/21 19:02 Dose: 1,000 mls/hr Documented by: Remdesivir 100 mg/ Sodium (Chloride) 100 mls @ 100 mls/hr IV Q24H [facility] Stop: 07/14/21 22:59 Last Admin: 07/14/21 21:58 Dose: 100 mls/hr Documented by: Remdesivir 200 mg/ Sodium (Chloride) 250 mls @ 250 mls/hr IV ONETIME ONE Stop: 07/10/21 21:49 Last Admin: 07/10/21 23:06 Dose: 250 mls/hr Documented by: Iopamidol (Iopamidol 755 Mg/Ml 500 Ml Multipack Bottle) 100 ml IVPUSH ONETIME O NE Stop: 07/10/21 18:32 Last Admin: 07/10/21 18:33 Dose: 100 ml Documented by: - Exam Quality Assessment: Supplemental Oxygen General: Alert, Oriented, Cooperative Lungs: Normal Respiratory Effort, Decreased Breath Sounds, Crackles Cardiovascular: Regular Rate, Regular Rhythm GI/Abdominal Exam: Normal Bowel Sounds, Soft Back Exam: Normal Inspection Extremities: Normal Inspection, Normal Range of Motion - Patient Data Lab Results Last 24 hrs: Laboratory Results - last 24 hr 07/15/21 07/15/21 Range/Units 05:33 05:33 WBC 5.00 (4.0-11.0) K/uL RBC 5.80 (4.50-5.90) M/uL Hgb 19.0 H (13.0-17.0) g/dL Hct 53.3 H (38.0-50.0) % MCV 91.9 (80.0-98.0) fL MCH 32.8 H (27.0-32.0) pg MCHC 35.6 (31.0-37.0) g/dL RDW Std Deviation 45.8 (28.0-62.0) fl RDW Coeff of [place] 14 (11.0-15.0) % Plt Count 253 (150-400) K/uL MPV 11.10 (7.40-12.00) fL Neut % (Auto) 73.6 (48.0-80.0) % Lymph % (Auto) 19.0 (16.0-40.0) % [place] % (Auto) 7.2 (0.0-15.0) % Eos % (Auto) 0.0 (0.0-7.0) % Baso % (Auto) 0.2 (0.0-1.5) % Neut # (Auto) 3.7 (1.4-5.7) K/uL Lymph # (Auto) 1.0 (0.6-2.4) K/uL [place] # (Auto) 0.4 (0.0-0.8) K/uL Eos # (Auto) 0.0 (0.0-0.7) K/uL Baso # (Auto) 0.0 (0.0-0.1) K/uL Nucleated RBC % 0.0 /100WBC Nucleated RBCs # 0 K/uL Sodium 133 L (136-148) mmol/L Potassium 4.7 (3.5-5.1) mmol/L Chloride 100 (98-107) mmol/L Carbon Dioxide 24.5 (21.0-32.0) mmol/L BUN 21 H (7.0-18.0) mg/dL Creatinine 1.0 (0.8-1.3) mg/dL Est Cr Clr Drug Dosing 98.31 mL/min Estimated GFR (MDRD) > 60.0 ml/min Glucose 133 H (74-106) mg/dL Calcium 8.0 L (8.5-10.1) mg/dL Total Bilirubin 0.7 (0.2-1.0) mg/dL AST 38 H (15-37) IU/L ALT 53 (14-63) IU/L Alkaline Phosphatase 52 (46-116) U/L Total Protein 6.7 (6.4-8.2) g/dL Albumin 2.7 L (3.4-5.0) g/dL Globulin 4.0 (2.6-4.0) g/dL Albumin/Globulin Ratio 0.7 L (0.9-1.6) Result Diagrams: 07/15/21 05:33 07/15/21 05:33 Sepsis Event Note - Evaluation Sepsis Screening Result: No Definite Risk - Focused Exam Vital Signs: Vital Signs Temp Pulse Resp BP BP Pulse Ox Pulse Ox 07/15/21 12:00 36.0 C L 64 20 111/73 91 L 07/15/21 10:13 101/72 07/15/21 10:00 91 L 07/15/21 08:00 36.5 C 76 18 101/72 91 L - Problem List & Annotations (1) Dyspnea SNOMED Code(s): 230418825 Code(s): R06.00 - DYSPNEA, UNSPECIFIED Status: Acute Current Visit: Yes (2) Erythrocytosis SNOMED Code(s): 160624359, 791733976 Code(s): D75.1 - SECONDARY POLYCYTHEMIA Status: Acute Current Visit: Yes (3) Hypoxia SNOMED Code(s): 109031668 Code(s): R09.02 - HYPOXEMIA Status: Acute Current Visit: Yes (4) Pneumonia due to COVID-19 virus SNOMED Code(s): 095999121572442554 Code(s): U07.1 - COVID-19; J12.82 - PNEUMONIA DUE TO CORONAVIRUS DISEASE 2019 Status: Acute Current Visit: Yes (5) Polycythemia SNOMED Code(s): 745306498 Code(s): D75.1 - SECONDARY POLYCYTHEMIA Status: Acute Current Visit: Yes (6) Acute hypoxemic respiratory failure due to COVID-19 SNOMED Code(s): 770770116 Code(s): U07.1 - COVID-19; J96.01 - ACUTE RESPIRATORY FAILURE WITH HYPOXIA Status: Acute Current Visit: Yes - Problem List Review Problem List Initiated/Reviewed/Updated: Yes - Plan Plan:: 46 yo male admitted for covid pneumonia with hypoxia Hypoxia: on 3L NC COVID pneumonia: cont finished remdesivir dexamethasone Continue duo nebs Continue cough syrup with codeine as needed for cough, cough is much better Lovenox for DVT prophylaxis 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 Encourage incentive spirometry and proning
[2021-07-15] MEDS: Dexamethasone 4 MG Tab PO SCH (21:06)
[2021-07-15] MEDS: Enoxaparin 40 MG/0.4 ML Syringe SUBCUT SCH (21:06)
[2021-07-16 07:52] LABS: BLOOD UREA NITROGEN,BUN 20 mg/dL (7.0-18.0); CARBON DIOXIDE,CO2 21.7 mmol/L (21.0-32.0); CHLORIDE,CL 99 mmol/L (98-107); GLUCOSE RANDOM 133 mg/dL (74-106); POTASSIUM,K 4.9 mmol/L (3.5-5.1); SODIUM,NA 133 mmol/L (136-148)
[2021-07-16] MEDS: Lisinopril 10 MG Tab PO SCH (08:34)
--- NOTE | 2021-07-16 10:51 | PCM.DCSUM1 ---
Discharge Summary - Hospital Course Diagnosis: Stroke: No - Discharge Data Discharge Disposition: Home, Self-Care 01 Condition: Stable - Referral to Home Health Primary Care Physician: PCP None - Discharge Diagnosis/Problem(s) (1) Dyspnea SNOMED Code(s): 785280834 ICD Code: R06.00 - DYSPNEA, UNSPECIFIED Status: Acute Current Visit: Yes (2) Erythrocytosis SNOMED Code(s): 720098594, 556460043 ICD Code: D75.1 - SECONDARY POLYCYTHEMIA Status: Acute Current Visit: Yes (3) Hypoxia SNOMED Code(s): 857724104 ICD Code: R09.02 - HYPOXEMIA Status: Acute Current Visit: Yes (4) Pneumonia due to COVID-19 virus SNOMED Code(s): 274916466377644781 ICD Code: U07.1 - COVID-19; J12.82 - PNEUMONIA DUE TO CORONAVIRUS DISEASE 2018 Status: Acute Current Visit: Yes (5) Polycythemia SNOMED Code(s): 796364701 ICD Code: D75.1 - SECONDARY POLYCYTHEMIA Status: Acute Current Visit: Yes (6) Acute hypoxemic respiratory failure due to COVID-19 SNOMED Code(s): 935994784 ICD Code: U07.1 - COVID-19; J96.01 - ACUTE RESPIRATORY FAILURE WITH HYPOXIA Status: Acute Current Visit: Yes - Patient Instructions Diet: Heart Healthy Diet Activity: As Tolerated Showering/Bathing: May Shower Notify Provider of: Fever, Increased Pain, Swelling and Redness, Drainage Other/Special Instructions: report to a doctor in case of worsening shortness of brearth, or increasing oxygen requirement - Discharge Plan *PRESCRIPTION DRUG MONITORING PROGRAM REVIEWED*: No *COPY OF PRESCRIPTION DRUG MONITORING REPORT IN PATIENT RAISA: No Prescriptions/Med Rec: dexAMETHasone [Dexamethasone] 6 mg PO Q24H 4 Days #6 tablet Benzonatate [Tessalon Perles] 100 mg PO Q6H PRN #30 cap PRN Reason: Cough Home Medications: Home Meds Albuterol Sulfate [Albuterol Sulfate HFA] 8.5 gm INH Q8HR PRN 07/10/21 [History] Codeine Phosphate/Guaifenesin [Guaifen-Codeine 100-10 mg/5 ml] 10 ml PO Q4H PRN 07/10/21 [History] Testosterone Cypionate [Testone Cik] 0.5 ml IM Q96H 07/10/21 [History] lisinopriL [Lisinopril] 20 mg PO BID 07/10/21 [History] predniSONE 10 mg PO .TAPER 07/10/21 [History] Benzonatate [Tessalon Perles] 100 mg PO Q6H PRN #30 cap 07/16/21 [Rx] dexAMETHasone [Dexamethasone] 6 mg PO Q24H 4 Days #6 tablet 07/16/21 [Rx] Patient Handouts: Hypoxia, COVID-19 Frequently Asked Questions, Shortness of Breath, Adult, [id number], COVID-19, COVID-19 Vaccine Information, COVID-19: How to Protect Yourself and Others - [facility] Referrals: Valeria Doll PA [Physician Cash Register Mechanic] - 07/28/21 1:30 pm - Patient Data Vitals - Most Recent: Last Vital Signs Temp 36.1 C 07/16/21 08:30 Pulse 72 07/16/21 08:30 Resp 18 07/16/21 08:30 BP 112/74 07/16/21 08:34 Pulse Ox 92 L 07/16/21 08:30 Weight - Most Recent: 99.11 kg I&O - Last 24 hours: Intake & Output 07/15/21 07/16/21 07/16/21 22:59 06:59 14:59 Intake Total 520 300 Output Total 0 600 Balance 520 -300 Lab Results - Last 24 hrs: Laboratory Results - last 24 hr 07/16/21 07/16/21 Range/Units 05:45 05:45 WBC 5.81 (4.0-11.0) K/uL RBC 5.93 H (4.50-5.90) M/uL Hgb 19.4 H (13.0-17.0) g/dL Hct 54.2 H (38.0-50.0) % MCV 91.4 (80.0-98.0) fL MCH 32.7 H (27.0-32.0) pg MCHC 35.8 (31.0-37.0) g/dL RDW Std Deviation 45.1 (28.0-62.0) fl RDW Coeff of [place] 13 (11.0-15.0) % Plt Count 299 (150-400) K/uL MPV 10.70 (7.40-12.00) fL Neut % (Auto) 73.1 (48.0-80.0) % Lymph % (Auto) 20.0 (16.0-40.0) % [place] % (Auto) 6.7 (0.0-15.0) % Eos % (Auto) 0.0 (0.0-7.0) % Baso % (Auto) 0.2 (0.0-1.5) % Neut # (Auto) 4.3 (1.4-5.7) K/uL Lymph # (Auto) 1.2 (0.6-2.4) K/uL [place] # (Auto) 0.4 (0.0-0.8) K/uL Eos # (Auto) 0.0 (0.0-0.7) K/uL Baso # (Auto) 0.0 (0.0-0.1) K/uL Nucleated RBC % 0.0 /100WBC Nucleated RBCs # 0 K/uL Sodium 133 L (136-148) mmol/L Potassium 4.9 (3.5-5.1) mmol/L Chloride 99 (98-107) mmol/L Carbon Dioxide 21.7 (21.0-32.0) mmol/L BUN 20 H (7.0-18.0) mg/dL Creatinine 0.9 (0.8-1.3) mg/dL Est Cr Clr Drug Dosing 109.23 mL/min Estimated GFR (MDRD) > 60.0 ml/min Glucose 133 H (74-106) mg/dL Calcium 7.9 L (8.5-10.1) mg/dL Total Bilirubin 0.7 (0.2-1.0) mg/dL AST 33 (15-37) IU/L ALT 70 H (14-63) IU/L Alkaline Phosphatase 52 (46-116) U/L Total Protein 6.3 L (6.4-8.2) g/dL Albumin 2.8 L (3.4-5.0) g/dL Globulin 3.5 (2.6-4.0) g/dL Albumin/Globulin Ratio 0.8 L (0.9-1.6) Med Orders - Current: Current Medications Acetaminophen (Acetaminophen 325 Mg Tab) 650 mg PO Q4H PRN PRN Reason: Pain Last Admin: 07/12/21 11:49 Dose: 650 mg Documented by: Albuterol (Albuterol 8 Gm Inhaler) 0 gm INH Q4HR PRN PRN Reason: Cough Benzonatate (Benzonatate 100 Mg Cap) 100 mg PO Q6H PRN PRN Reason: Cough Last Admin: 07/13/21 12:04 Dose: 100 mg Documented by: Dexamethasone (Dexamethasone 4 Mg Tab) 6 mg PO Q24H [facility] Last Admin: 07/15/21 21:06 Dose: 6 mg Documented by: Enoxaparin Sodium (Enoxaparin 40 Mg/0.4 Ml Syringe) 40 mg SUBCUT Q24H [facility] Last Admin: 07/15/21 21:06 Dose: 40 mg Documented by: Guaifenesin/Codeine Phosphate (Codeine/Guaifenesin 10-100 Mg/5 Ml Syrup 5 Ml Cup) 10 ml PO Q4H PRN PRN Reason: Cough Last Admin: 07/15/21 20:18 Dose: 10 ml Documented by: Lisinopril (Lisinopril 10 Mg Tab) 20 mg PO BID [facility] Last Admin: 07/16/21 08:34 Dose: 20 mg Documented by: Melatonin (Melatonin 3 Mg Tab) 6 mg PO BEDTIME PRN PRN Reason: Insomnia Last Admin: 07/11/21 01:00 Dose: 6 mg Documented by: Sodium Chloride (Sodium Chloride 0.9% 10 Ml Syringe) 10 ml FLUSH ASDIRECTED PRN PRN Reason: Keep Vein Open Last Admin: 07/10/21 16:57 Dose: 10 ml Documented by: Sodium Chloride (Sodium Chloride 0.9% 2.5 Ml Syringe) 2.5 ml FLUSH ASDIRECTED PRN PRN Reason: Keep Vein Open Last Admin: 07/10/21 16:57 Dose: 2.5 ml Documented by: Discontinued Medications Acetaminophen (Acetaminophen 500 Mg Tab) 1,000 mg PO ONETIME ONE Stop: 07/10/21 16:50 Last Admin: 07/10/21 16:56 Dose: 1,000 mg Documented by: Guaifenesin/Codeine Phosphate (Codeine/Guaifenesin 10-100 Mg/5 Ml Syrup 5 Ml Cup) 5 ml PO Q6H PRN PRN Reason: Cough Last Admin: 07/12/21 11:19 Dose: 5 ml Documented by: Guaifenesin/Codeine Phosphate (Codeine/Guaifenesin 10-100 Mg/5 Ml Syrup 5 Ml Cup) 5 ml PO Q4H PRN PRN Reason: Cough Guaifenesin/Dextromethorphan (Guaifenesin/Dextromethorphan 100-10 Mg/5 Ml Soln 10 Ml Cup) 10 ml PO Q4H PRN PRN Reason: Cough Last Admin: 07/13/21 10:00 Dose: 10 ml Documented by: Sodium Chloride (Normal Saline) 1,000 mls @ 1,000 mls/hr IV .Bolus ONE Stop: 07/10/21 18:38 Last Admin: 07/10/21 17:42 Dose: 1,000 mls/hr Documented by: Sodium Chloride (Normal Saline) 1,000 mls @ 1,000 mls/hr IV .Bolus ONE Stop: 07/10/21 18:38 Last Admin: 07/10/21 19:02 Dose: 1,000 mls/hr Documented by: Remdesivir 100 mg/ Sodium (Chloride) 100 mls @ 100 mls/hr IV Q24H [facility] Stop: 07/14/21 22:59 Last Admin: 07/14/21 21:58 Dose: 100 mls/hr Documented by: Remdesivir 200 mg/ Sodium (Chloride) 250 mls @ 250 mls/hr IV ONETIME ONE Stop: 07/10/21 21:49 Last Admin: 07/10/21 23:06 Dose: 250 mls/hr Documented by: Iopamidol (Iopamidol 755 Mg/Ml 500 Ml Multipack Bottle) 100 ml IVPUSH ONETIME O NE Stop: 07/10/21 18:32 Last Admin: 07/10/21 18:33 Dose: 100 ml Documented by:
== END 2021-07-16 19:05 | disposition home or self-care (01) | DRG 177 ==
LOC: MW.ED 15:53 → MW.MS 18:20 → OBSVTOIN 07-11 16:48 → MW.MS 07-11 17:30
PROVIDERS: ADMIT Internal Medicine; ATTEND Internal Medicine
PROC: XW033E5 Introduction of Remdesivir Anti-infective into Peripheral Vein, Percutaneous Approach, New Technology Group 5 (ICD-10-PCS; principal; 2021-07-11)
PROC: 3E0333Z Introduction of Anti-inflammatory into Peripheral Vein, Percutaneous Approach (ICD-10-PCS; 2021-07-11)
DX: U07.1 COVID-19 (principal); J12.82 Pneumonia due to coronavirus disease 2019; J96.01 Acute respiratory failure with hypoxia; D75.1 Secondary polycythemia
CPT/HCPCS: 0240U; 36415; 71045; 71045-26; 71275; 71275-26; 80053; 84484; 85025; 85027; 96365; 96372; 99285-25; A9270-GY; G0378; J1650; J7030; J7050; J8540; Q9967